=== PATIENT | female | born 1995 | race Caucasian/White ===

== ENCOUNTER 2016-03-09 21:50 | Emergency (ER) | payer OTHER ==
[2016-03-09 23:00] LABS: MEAN CORPUSCULAR HEMOGLOBIN 28.2 pg (27.0-33.0); MEAN CORPUSCULAR HGB CONC 33.2 g/dl (32.0-36.5); MEAN CORPUSCULAR VOLUME 85.2 fl (80.0-96.0); RED CELL DISTRIBUTION WIDTH 13.8 % (11.5-14.5)
--- NOTE | 2016-03-09 23:08 | EDDOCDS ---
Physician Documentation [facility] Name: Aria Diaz Age: 20 yrs Sex: Female : 1995 Arrival Date: 03/09/2016 Time: 21:50 Bed OBSERVATION Private MD: KYElmira DUKES Disposition: 03/09/16 22:58 Discharged to Home/Self Care. Impression: Acute stress reaction. - Condition is Stable. - Medication Reconciliation, Local Pharmacy Hours form. - Follow up: Referral list, As provided by PFS; When: Call to arrange an appointment; Reason: Recheck today's complaints. - Problem is new. - Symptoms have improved. Historical: - Allergies: No known drug Allergies; - Home Meds: 1. control - PMHx: Anxiety; - PSHx: wisdom teeth; - Social history: Smoking status: Patient uses tobacco products, current some day smoker. No barriers to communication noted, The patient speaks fluent Australian, Speaks appropriately for age. - Family history: Not pertinent. - : The pt / caregiver states he / she is not on anticoagulants. Home medication list is obtained from the patient. - Exposure Risk Screening:: None identified. 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 1 in. (154.94 cm) (R); 22:11 Pulse 119; slm 22:41 BP 142 / 88; Pulse 106; Resp 18; Pulse Ox 99% ; slm 21:52 Body Mass Index 33.82 (81.19 kg, 154.94 cm) dd6 MDM: 21:59 Consult PFS/PSA/Wardrobe Supervisor ordered. cs11 22:20 Consult PFS/PSA/Wardrobe Supervisor complete. ml4 22:41 Consult PFS/PSA/Wardrobe Supervisor ordered. cs11 22:41 Consult PFS/PSA/Wardrobe Supervisor: Patient's case requires discussion with on-call cs11 Psychiatrist ordered. 22:41 PSA/PFS to call Nursing Business Continuity Planning Director, to enter patient data on [place] if patient cs11 involuntarily admitted or transferred for SI or HI ordered. 22:41 Confirm accurate psychiatric medication list and times of last dosage ordered. cs11 22:41 Detain Pt Until Medically/PFS Cleared ordered. cs11 22:42 Acetaminophen Level Ordered. EDMS 22:42 Basic Metabolic Profile Ordered. EDMS 22:42 Complete Blood Count Ordered. EDMS 22:42 Drug Eval Toxicology ED Only Ordered. EDMS 22:42 Ethyl Alcohol (ethanol) Ordered. EDMS 22:42 HCG,Serum Qualitative Ordered. EDMS 22:42 Liver Profile Ordered. EDMS 22:42 Salicylate Level Ordered. EDMS 22:42 Thyroid Stimulating Hormone Ordered. EDMS 22:48 Financial registration complete. zo 22:56 [facility] [place] Agreement was scanned into [employer] and attached to record. zo 23:06 Consult PFS/PSA/Wardrobe Supervisor complete. slm Signatures: Dispatcher [employer] EDMS Bg Nance, RN RN cz Jodi York, PSA PSA ml4 [place], Zoeann zo Suman Hamlin, DO cs11 Veronica Hall,TRAINER TRAINER serafinm The chart was reviewed and I authenticate all verbal orders and agree with the evaluation and treatment provided.Attachments: 22:56 [facility] [place] Agreement zo MTDD
--- NOTE | 2016-03-09 23:09 | EDDOCDS ---
Nurse's Notes [facility] Name: Aria Diaz Age: 20 yrs Sex: Female : 1995 Arrival Date: 03/09/2016 Time: 21:50 Bed OBSERVATION Private MD: INElmira DUKES Diagnosis: Acute stress reaction Presentation: 03/09 21:58 Presenting complaint: Patient states: she was hanging out with friend and developed a cz panic attack hands were shaking and felt panicky history of anxiety pt was taking a medication for same but stopped taking because it made her tired. Mental Health Triage Level: Level 1- Pt displays no suicidal or homicidal ideations and does not appear to be a danger to self or others. Adult Sepsis Screening: The patient does not have new or worsening altered mentation. Patient's respiratory rate is less than 22. Systolic blood pressure is greater than 100. Patient has a qSOFA score of 0- Negative Sepsis Screen. Mental Health Triage Level: Level 1- Pt displays no suicidal or homicidal ideations and does not appear to be a danger to self or others. Suicide/Homicide risk assessment- the patient denies having any suicidal and/or homicidal ideations and does not present with any other emotional, behavioral or mental health complaints. 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 Transition of care: patient was not received from another setting of care. 21:58 Acuity: NIKKI Level 4 cz 21:58 Method Of Arrival: Walkin/Carried/Asstd cz Triage Assessment: 22:02 General: Appears distressed, Behavior is anxious. Pain: Denies pain. HIV screening [facility] for this visit Offered previously. 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 control - PMHx: Anxiety; - PSHx: wisdom teeth; - Social history: Smoking status: Patient uses tobacco products, current some day smoker. No barriers to communication noted, The patient speaks fluent Mongolian, Speaks appropriately for age. - Family history: Not pertinent. - : The pt / caregiver states he / she is not on anticoagulants. Home medication list is obtained from the patient. - Exposure Risk Screening:: None identified. Screenin:12 Screening information is obtained from the patient. Fall risk: No risks identified. slm Assistance ADL's: requires no assistance with activities of daily living. Nutritional screening: No deficits noted. Advance Directives: Currently, there is no health care proxy. There is no active DNR order. There is no living will. There is no Power of Entry Level Marketing Representative. Advance directive information has not previously been placed in an [facility] medical record. 23:07 Abuse/DV Screen: The patient / caregiver reports he/she is: not in a situation that slm causes fear, pain or injury. home support is adequate. Assessment: 22:11 General: Appears in no apparent distress, Behavior is anxious, cooperative. General: pt slm sitting in room [facility] talking with pt at this time . Pain: Denies pain. Neurological: Level of Consciousness is awake, alert, obeys commands. Respiratory: Airway is patent Respiratory effort is even, unlabored. :. Derm: Skin is Skin is pink, warm & dry. 23:06 Reassessment: Patient appears in no apparent distress at this time. General: Appears in slm no apparent distress, comfortable, Behavior is cooperative. Respiratory: No deficits noted. Mental Health Eval: 22:20 Mental health consult is initiated at 22:15. 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 [facility] Behavioral Health: The patient is not an established patient of [facility] Behavioral Health. Referral Information: Evaluation referral is generated by the patient himself / herself. The patient was referred for evaluation because developed a panic attack and friend's house and was unable to calm herself down, so she decided to present to [facility] as directed by [facility] on Thursday. . Subjective: The patients chief complaint is pt states, "I just had a really bad panic attack and I couldn't get myself under control." Pt initially presented to ED due to developing a panic attack while at her friends house and was unable to calm herself down. She presented to [facility] on Thursday for anxiety and was directed to present to [facility] if her symptoms became worse and request hospitalization, "to get a break from your problems." Pt adamantly denied SI and HI during interview, but then was unable to CFS when interview was almost compete. Admits suffering from vague fleeting thoughts of suicide with no plan for the past 2 days. Pt states, "Sometimes I want to fall asleep and never wake up." Last vague thought was this am, denies SI currently. Pt reports a hx of anxiety, stopped taking medication(name unknown) awhile ago due to the negative side effects. She feels the medication made her too drowsy. Pt reports feeling her panic attack was triggered by numerous stressors in her life. She and her are active duty , recently [place] to [place]. Pt reports being chaptered out of the due to not meeting their height and weight guidelines. She is suspecting discharge date is going to be within a month, however is unsure and her unit is expected to be going to [email or web address] for training. Pt states, "do I have to go to training if I'm being discharged?" Other stressors include financial difficulties and is currently staying with a friend until she can move to be with her in [place]. . Delusions are denied. Patient's mood is depressed, Hallucinations are denied. Mental Health history: anxiety, Mental Health Admissions: None. Current Outpatient Mental Health Services: [facility]. Current living environment is The patient currently lives with a roommate, . The patient is . Patient presents to Emergency Department with the following symptoms within the past 2 weeks: anxiety, decreased appetite, depressed mood, vague SI- fall asleep and not wake up. Pt denies active thoughts currently . panic attacks, poor concentration, poor impulse control, relational problem, sleep disturbance - insomnia. Substance abuse: Patient uses of wine, 2. Mental status exam: Patients appearance is appropriate, Patient's behavior is cooperative, Speech is normal. Affect is appropriate. Mood is anxious. Hallucinations are denied. Appetite is poor. Memory is good. Energy level is normal. Content of thought is normal. Thought process is intact. Cognitive level is oriented to person, place, time and situation Patient's insight is good. Judgement is good. Rapport with interviewer is good. Suicidal Ideation is denied. Homicidal ideation is denied. Disposition: Medically cleared for disposition by Suman Hamlin DO Psychiatric Consult is deferred per ED physician, Dr Hamlin . [facility] Admission Criteria: Not Applicable. [place] because the patient does not display any suicidal or homicidal ideations and does not pose a risk to self or others. DSM-V Differential Diagnosis: Acute Stress Disorder (F 43.0). Narrative: Pt continues to deny SI and HI. Voluntarily admission was discussed, pt initially was requesting hospitalization, however then decided to follow up with [facility] on Thursday. Referrals for outpt services was given at bedside and directed to return if symptoms become worse. Vital Signs: 21:52 BP 147 / 105; Pulse 135; Resp 18 S; Temp 99.0(O); Pulse Ox 99% on R/A; Weight 81.19 kg dd6 (M); Height 5 ft. 1 in. (154.94 cm) (R); 22:11 Pulse 119; slm 22:41 BP 142 / 88; Pulse 106; Resp 18; Pulse Ox 99% ; slm 21:52 Body Mass Index 33.82 (81.19 kg, 154.94 cm) dd6 Vitals: 21:52 Log In Time: March 09, 2016 at 21:50. dd6 21:53 RN notified that patient meets Red Flag criteria. dd6 ED Course: 21:51 Patient visited by John Goldberg PCA. dd6 21:51 Patient moved to Waiting dd6 21:52 [facility] Mchenry is Private Physician. dd6 21:58 Suman Hamlin DO is Attending Physician. cs11 21:58 Patient visited by Suman Hamlin DO. cs11 21:58 Patient moved to 31 cz 22:01 Triage Initiated cz 22:11 Veronica Hall LPN is Primary Nurse. slm 22:12 No IV's were initiated during this patient's visit. No procedures done that require slm assistance. 22:13 Patient visited by Veronica Hall LPN. slm 22:13 The patient / caregiver is instructed regarding the plan of care and ED course. Patient slm has correct armband on for positive identification. Call light in reach. Side rails up X 1. 22:46 Patient moved to OBSERVATION cs11 22:53 Patient name changed from Aria\\S\\\\S\\Joe\\S\\ to Aria\\S\\ \\S\\Joe. EDMS 22:56 [facility] Payment Agreement was scanned into [employer] and attached to record. zo 22:58 Referral list, As provided by PFS is Referral Physician. cs11 23:07 Patient visited by Veronica Hall LPN. slm Order Results: Lab Order: Complete Blood Count; SPEC'M 03/09/16 22:51 Test: WHITE BLOOD COUNT; Value: 14.0; Range: 4.0-10.0; Abnormal: Above high normal; Units: K/mm3; Status: F Test: RED BLOOD COUNT; Value: 4.88; Range: 4.00-5.40; Units: M/mm3; Status: F Test: HEMOGLOBIN; Value: 13.8; Range: 12.0-16.0; Units: g/dl; Status: F Test: HEMATOCRIT; Value: 41.6; Range: 36.0-47.0; Units: %; Status: F Test: MEAN CORPUSCULAR VOLUME; Value: 85.2; Range: 80.0-96.0; Units: fl; Status: F Test: MEAN CORPUSCULAR HEMOGLOBIN; Value: 28.2; Range: 27.0-33.0; Units: pg; Status: F Test: MEAN CORPUSCULAR HGB CONC; Value: 33.2; Range: 32.0-36.5; Units: g/dl; Status: F Test: RED CELL DISTRIBUTION WIDTH; Value: 13.8; Range: 11.5-14.5; Units: %; Status: F Test: PLATELET COUNT, AUTOMATED; Value: 264; Range: 150-450; Units: k/mm3; Status: F Outcome: 22:58 Discharge ordered by Provider. cs11 23:07 Discharge Assessment: Patient awake, alert and oriented x 3. No cognitive and/or slm functional deficits noted. Patient verbalized understanding of disposition instructions. patient administered narcotics - no. The following High Risk Discharge criteria are identified: None. Discharged to home ambulatory. Condition: good. Discharge instructions given to patient, Instructed on discharge instructions, follow up and referral plans. Demonstrated understanding of instructions, Pt was receptive of discharge instructions/ teaching. No special radiology studies were completed. Property :Personal belongings accompany Pt. 23:07 Patient left the ED. slm Signatures: Dispatcher [employer] EDMS Bg Nance, RN RN Jodi Alexis, PSA PSA ml4 Any Solo zo John Goldberg, AUTO MECHANIC SUPERVISOR AUTO MECHANIC SUPERVISOR dd6 Suman Hamlin DO DO cs11 Veronica Hall LPN LPN slm MTDD
[2016-03-09 23:12] LABS: AMPHETAMINES LEVEL URINE NEGATIVE (NEGATIVE); BENZODIAZEPINES URINE NEGATIVE (NEGATIVE); COCAINE METABOLITE URINE NEGATIVE (NEGATIVE); CONTROL LINE INT CTR LINE PRESENT; METHADONE URINE NEGATIVE (NEGATIVE); OPIATES URINE NEGATIVE (NEGATIVE); TRICYCLIC ANTIDEPRESS URINE NEGATIVE (NEGATIVE)
[2016-03-09 23:15] LABS: CONTROL LINE HCG INT CTR LINE PRESENT
[2016-03-09 23:29] LABS: ALBUMIN 3.8 GM/DL (3.2-5.2); ALBUMIN/GLOBULIN RATIO 0.97 (1.00-1.93); ALKALINE PHOSPHATASE 58 U/L (45-117); ALT/SGPT 17 U/L (12-78); ANION GAP 10 MEQ/L (8-16); AST/SGOT 10 U/L (15-37); BILIRUBIN,DIRECT < 0.1 MG/DL (0.0-0.2); BILIRUBIN,TOTAL 0.3 MG/DL (0.2-1.0); BLOOD UREA NITROGEN 17 MG/DL (7-18); CALCIUM LEVEL 8.7 MG/DL (8.5-10.1); CARBON DIOXIDE LEVEL 26 MEQ/L (21-32); CHLORIDE LEVEL 105 MEQ/L (98-107); GLOMERULAR FILTRATION RATE > 60.0 (>60); GLUCOSE, FASTING 100 MG/DL (70-105); POTASSIUM SERUM 3.6 MEQ/L (3.5-5.1); SODIUM LEVEL 141 MEQ/L (136-145); TOTAL PROTEIN 7.7 GM/DL (6.4-8.2)
--- NOTE | 2016-03-12 00:08 | EDDOCDS ---
Nurse's Notes [facility] Name: Aria Diaz Age: 20 yrs Sex: Female : 1995 Arrival Date: 03/09/2016 Time: 21:50 Bed OBSERVATION Private MD: NJElmira DUKES Diagnosis: Acute stress reaction Presentation: 03/09 21:58 Presenting complaint: Patient states: she was hanging out with friend and developed a cz panic attack hands were shaking and felt panicky history of anxiety pt was taking a medication for same but stopped taking because it made her tired. Mental Health Triage Level: Level 1- Pt displays no suicidal or homicidal ideations and does not appear to be a danger to self or others. Adult Sepsis Screening: The patient does not have new or worsening altered mentation. Patient's respiratory rate is less than 22. Systolic blood pressure is greater than 100. Patient has a qSOFA score of 0- Negative Sepsis Screen. Mental Health Triage Level: Level 1- Pt displays no suicidal or homicidal ideations and does not appear to be a danger to self or others. Suicide/Homicide risk assessment- the patient denies having any suicidal and/or homicidal ideations and does not present with any other emotional, behavioral or mental health complaints. 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 Transition of care: patient was not received from another setting of care. 21:58 Acuity: NIKKI Level 4 cz 21:58 Method Of Arrival: Walkin/Carried/Asstd cz Triage Assessment: 22:02 General: Appears distressed, Behavior is anxious. Pain: Denies pain. HIV screening [facility] for this visit Offered previously. 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 control - PMHx: Anxiety; - PSHx: wisdom teeth; - Social history: Smoking status: Patient uses tobacco products, current some day smoker. No barriers to communication noted, The patient speaks fluent Solomon Islander, Speaks appropriately for age. - Family history: Not pertinent. - : The pt / caregiver states he / she is not on anticoagulants. Home medication list is obtained from the patient. - Exposure Risk Screening:: None identified. Screenin:12 Screening information is obtained from the patient. Fall risk: No risks identified. slm Assistance ADL's: requires no assistance with activities of daily living. Nutritional screening: No deficits noted. Advance Directives: Currently, there is no health care proxy. There is no active DNR order. There is no living will. There is no Power of Financial Service Rep. Advance directive information has not previously been placed in an [facility] medical record. 23:07 Abuse/DV Screen: The patient / caregiver reports he/she is: not in a situation that slm causes fear, pain or injury. home support is adequate. Assessment: 22:11 General: Appears in no apparent distress, Behavior is anxious, cooperative. General: pt slm sitting in room [facility] talking with pt at this time . Pain: Denies pain. Neurological: Level of Consciousness is awake, alert, obeys commands. Respiratory: Airway is patent Respiratory effort is even, unlabored. :. Derm: Skin is Skin is pink, warm & dry. 23:06 Reassessment: Patient appears in no apparent distress at this time. General: Appears in slm no apparent distress, comfortable, Behavior is cooperative. Respiratory: No deficits noted. Mental Health Eval: 22:20 Mental health consult is initiated at 22:15. 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 [facility] Behavioral Health: The patient is not an established patient of [facility] Behavioral Health. Referral Information: Evaluation referral is generated by the patient himself / herself. The patient was referred for evaluation because developed a panic attack and friend's house and was unable to calm herself down, so she decided to present to [facility] as directed by [facility] on Thursday. . Subjective: The patients chief complaint is pt states, "I just had a really bad panic attack and I couldn't get myself under control." Pt initially presented to ED due to developing a panic attack while at her friends house and was unable to calm herself down. She presented to [facility] on Thursday for anxiety and was directed to present to [facility] if her symptoms became worse and request hospitalization, "to get a break from your problems." Pt adamantly denied SI and HI during interview, but then was unable to CFS when interview was almost compete. Admits suffering from vague fleeting thoughts of suicide with no plan for the past 2 days. Pt states, "Sometimes I want to fall asleep and never wake up." Last vague thought was this am, denies SI currently. Pt reports a hx of anxiety, stopped taking medication(name unknown) awhile ago due to the negative side effects. She feels the medication made her too drowsy. Pt reports feeling her panic attack was triggered by numerous stressors in her life. She and her are active duty , recently [place] to [place]. Pt reports being chaptered out of the due to not meeting their height and weight guidelines. She is suspecting discharge date is going to be within a month, however is unsure and her unit is expected to be going to [facility] for training. Pt states, "do I have to go to training if I'm being discharged?" Other stressors include financial difficulties and is currently staying with a friend until she can move to be with her in [place]. . Delusions are denied. Patient's mood is depressed, Hallucinations are denied. Mental Health history: anxiety, Mental Health Admissions: None. Current Outpatient Mental Health Services: [facility]. Current living environment is The patient currently lives with a roommate, . The patient is . Patient presents to Emergency Department with the following symptoms within the past 2 weeks: anxiety, decreased appetite, depressed mood, vague SI- fall asleep and not wake up. Pt denies active thoughts currently . panic attacks, poor concentration, poor impulse control, relational problem, sleep disturbance - insomnia. Substance abuse: Patient uses of wine, 2. Mental status exam: Patients appearance is appropriate, Patient's behavior is cooperative, Speech is normal. Affect is appropriate. Mood is anxious. Hallucinations are denied. Appetite is poor. Memory is good. Energy level is normal. Content of thought is normal. Thought process is intact. Cognitive level is oriented to person, place, time and situation Patient's insight is good. Judgement is good. Rapport with interviewer is good. Suicidal Ideation is denied. Homicidal ideation is denied. Disposition: Medically cleared for disposition by Suman Hamlin DO Psychiatric Consult is deferred per ED physician, Dr Hamlin . [facility] Admission Criteria: Not Applicable. [place] because the patient does not display any suicidal or homicidal ideations and does not pose a risk to self or others. DSM-V Differential Diagnosis: Acute Stress Disorder (F 43.0). Narrative: Pt continues to deny SI and HI. Voluntarily admission was discussed, pt initially was requesting hospitalization, however then decided to follow up with [facility] on Thursday. Referrals for outpt services was given at bedside and directed to return if symptoms become worse. Vital Signs: 21:52 BP 147 / 105; Pulse 135; Resp 18 S; Temp 99.0(O); Pulse Ox 99% on R/A; Weight 81.19 kg dd6 (M); Height 5 ft. 1 in. (154.94 cm) (R); 22:11 Pulse 119; slm 22:41 BP 142 / 88; Pulse 106; Resp 18; Pulse Ox 99% ; slm 21:52 Body Mass Index 33.82 (81.19 kg, 154.94 cm) dd6 Vitals: 21:52 Log In Time: March 09, 2016 at 21:50. dd6 21:53 RN notified that patient meets Red Flag criteria. dd6 ED Course: 21:51 Patient visited by John Goldberg PCA. dd6 21:51 Patient moved to Waiting dd6 21:52 PSYCHIATRIC Kress is Private Physician. dd6 21:58 Suman Hamlin DO is Attending Physician. cs11 21:58 Patient visited by Suman Hamlin DO. cs11 21:58 Patient moved to 31 cz 22:01 Triage Initiated cz 22:11 Veronica Hall LPN is Primary Nurse. slm 22:12 No IV's were initiated during this patient's visit. No procedures done that require slm assistance. 22:13 Patient visited by Veronica Hall LPN. slm 22:13 The patient / caregiver is instructed regarding the plan of care and ED course. Patient slm has correct armband on for positive identification. Call light in reach. Side rails up X 1. 22:46 Patient moved to OBSERVATION cs11 22:53 Patient name changed from Aria\\S\\\\S\\Joe\\S\\ to Aria\\S\\ \\S\\Joe. EDMS 22:56 [facility] Payment Agreement was scanned into [employer] and attached to record. zo 22:58 Referral list, As provided by PFS is Referral Physician. cs11 23:07 Patient visited by Veronica Hall LPN. slm 23:08 PSA Outpatient Referrals was scanned into [employer] and attached to record. ml4 03/10 11:32 T-Sheet-- Draft Copy was scanned into [employer] and attached to record. gb Order Results: Lab Order: Acetaminophen Level; SPEC'M 03/09/16 22:51 Test: ACETAMINOPHEN LEVEL; Value: < 2.0; Range: 10.0-30.0; Abnormal: Below low normal; Units: UG/ML; Status: F Lab Order: Basic Metabolic Profile; SPEC'M 03/09/16 22:51 Test: GLUCOSE, FASTING; Value: 100; Range: 70-105; Units: MG/DL; Status: F Test: BLOOD UREA NITROGEN; Value: 17; Range: 7-18; Units: MG/DL; Status: F Test: CREATININE FOR GFR; Value: 0.90; Range: 0.55-1.02; Units: MG/DL; Status: F Test: SODIUM LEVEL; Range: 136-145; Units: MEQ/L; Status: I Test: POTASSIUM SERUM; Range: 3.5-5.1; Units: MEQ/L; Status: I Test: CHLORIDE LEVEL; Range: 98-107; Units: MEQ/L; Status: I Test: CARBON DIOXIDE LEVEL; Range: 21-32; Units: MEQ/L; Status: I Test: ANION GAP; Range: 8-16; Units: MEQ/L; Status: I Test: CALCIUM LEVEL; Range: 8.5-10.1; Units: MG/DL; Status: I Test: GLOMERULAR FILTRATION RATE; Value: > 60.0; Range: >60; Status: F Test: SODIUM LEVEL; Value: 141; Range: 136-145; Units: MEQ/L; Status: F Test: POTASSIUM SERUM; Value: 3.6; Range: 3.5-5.1; Units: MEQ/L; Status: F Test: CHLORIDE LEVEL; Value: 105; Range: 98-107; Units: MEQ/L; Status: F Test: CARBON DIOXIDE LEVEL; Value: 26; Range: 21-32; Units: MEQ/L; Status: F Test: ANION GAP; Value: 10; Range: 8-16; Units: MEQ/L; Status: F Test: CALCIUM LEVEL; Value: 8.7; Range: 8.5-10.1; Units: MG/DL; Status: F Test Note: ; Units are mL/min/1.73 m2 Chronic Kidney Disease Staging per NKF: Stage I & II GFR >=60 Normal to Mildly Decreased Stage III GFR 30-59 Moderately Decreased Stage IV GFR 15-29 Severely Decreased Stage V GFR <15 Very Little GFR Left ESRD GFR <15 on BRAKE HOLDER Lab Order: Complete Blood Count; SPEC'M 03/09/16 22:51 Test: WHITE BLOOD COUNT; Value: 14.0; Range: 4.0-10.0; Abnormal: Above high normal; Units: K/mm3; Status: F Test: RED BLOOD COUNT; Value: 4.88; Range: 4.00-5.40; Units: M/mm3; Status: F Test: HEMOGLOBIN; Value: 13.8; Range: 12.0-16.0; Units: g/dl; Status: F Test: HEMATOCRIT; Value: 41.6; Range: 36.0-47.0; Units: %; Status: F Test: MEAN CORPUSCULAR VOLUME; Value: 85.2; Range: 80.0-96.0; Units: fl; Status: F Test: MEAN CORPUSCULAR HEMOGLOBIN; Value: 28.2; Range: 27.0-33.0; Units: pg; Status: F Test: MEAN CORPUSCULAR HGB CONC; Value: 33.2; Range: 32.0-36.5; Units: g/dl; Status: F Test: RED CELL DISTRIBUTION WIDTH; Value: 13.8; Range: 11.5-14.5; Units: %; Status: F Test: PLATELET COUNT, AUTOMATED; Value: 264; Range: 150-450; Units: k/mm3; Status: F Lab Order: Drug Eval Toxicology ED Only; SPEC'M 03/09/16 22:51 Test: AMPHETAMINES LEVEL URINE; Value: NEGATIVE; Range: NEGATIVE; Status: F Test: BARBITURATES URINE; Value: NEGATIVE; Range: NEGATIVE; Status: F Test: BENZODIAZEPINES URINE; Value: NEGATIVE; Range: NEGATIVE; Status: F Test: CANNABINOIDS URINE; Value: NEGATIVE; Range: NEGATIVE; Status: F Test: COCAINE METABOLITE URINE; Value: NEGATIVE; Range: NEGATIVE; Status: F Test: METHADONE URINE; Value: NEGATIVE; Range: NEGATIVE; Status: F Test: OPIATES URINE; Value: NEGATIVE; Range: NEGATIVE; Status: F Test: TRICYCLIC ANTIDEPRESS URINE; Value: NEGATIVE; Range: NEGATIVE; Status: F Test Note: ; ALL PRESUMPTIVE POSITIVE FINDINGS ARE UNCONFIRMED NORMAL VALUES THRESHOLD IN NG/ML AMPHETAMINES 1000 METHAMPHETAMINES 1000 BARBITURATES 300 BENZODIAZEPINES 300 CANNABINOIDS (THC) 50 COCAINE METABOLITE 300 METHADONE 300 OPIATES 300 PHENCYCLIDINE 25 TRICYCLIC ANTIDEPRESSANTS 1000 RESULTS ARE FOR MEDICAL PURPOSES ONLY. ALL URINE SPECIMENS WILL BE SAVED FOR 3 DAYS. IF CONFIRMATION OF A PRESUMPTIVE POSTIVE SCREEN RESULT IS DESIRED, CALL CHEMISTRY ([phone]) AND REQUEST URINE TO BE SENT TO REFERENCE LAB. FOR A LIST OF CLOSELY RELATED COMPOUNDS PLEASE CALL THE LAB. Lab Order: Ethyl Alcohol (ethanol); SPEC' 03/09/16 22:51 Test: ETHYL ALCOHOL (ETHANOL); Value: < 0.003; Range: 0.000-0.010; Units: %; Status: F Lab Order: HCG,Serum Qualitative; SPEC'M 03/09/16 22:51 Test: HCG, SERUM QUALITATIVE; Value: NEGATIVE; Range: NEGATIVE; Status: F Lab Order: Liver Profile; SPEC' 03/09/16 22:51 Test: AST/SGOT; Value: 10; Range: 15-37; Abnormal: Below low normal; Units: U/L; Status: F Test: ALT/SGPT; Value: 17; Range: 12-78; Units: U/L; Status: F Test: ALKALINE PHOSPHATASE; Value: 58; Range: 45-117; Units: U/L; Status: F Test: BILIRUBIN,TOTAL; Value: 0.3; Range: 0.2-1.0; Units: MG/DL; Status: F Test: BILIRUBIN,DIRECT; Value: < 0.1; Range: 0.0-0.2; Units: MG/DL; Status: F Test: TOTAL PROTEIN; Value: 7.7; Range: 6.4-8.2; Units: GM/DL; Status: F Test: ALBUMIN; Value: 3.8; Range: 3.2-5.2; Units: GM/DL; Status: F Test: ALBUMIN/GLOBULIN RATIO; Value: 0.97; Range: 1.00-1.93; Abnormal: Below low normal; Status: F Lab Order: Salicylate Level; SPEC'M 03/09/16 22:51 Test: SALICYLATE LEVEL; Value: 2.0; Range: 5.0-30.0; Abnormal: Below low normal; Units: MG/DL; Status: F Lab Order: Thyroid Stimulating Hormone; SPEC'M 03/09/16 22:51 Test: THYROID STIMULATING HORMONE; Value: 3.820; Range: 0.358-3.740; Abnormal: Above high normal; Units: uIU/ML; Status: F Outcome: 03/09 22:58 Discharge ordered by Provider. cs11 23:07 Discharge Assessment: Patient awake, alert and oriented x 3. No cognitive and/or slm functional deficits noted. Patient verbalized understanding of disposition instructions. patient administered narcotics - no. The following High Risk Discharge criteria are identified: None. Discharged to home ambulatory. Condition: good. Discharge instructions given to patient, Instructed on discharge instructions, follow up and referral plans. Demonstrated understanding of instructions, Pt was receptive of discharge instructions/ teaching. No special radiology studies were completed. Property :Personal belongings accompany Pt. 23:07 Patient left the ED. slm Signatures: Dispatcher [employer] EDMS Bg Nance, CHARMAINE RN Arleen Marsh, Reg Reg gb Jodi York, PSA PSA ml4 Any Solo Daniell, HAYDER CATERING COORDINATOR dd6 Suman Hamlin, DO cs11 Veronica Hall,MASH PROCESSING OPERATOR MASH PROCESSING OPERATOR slm Chart Complete MTDD
--- NOTE | 2016-03-12 00:08 | EDDOCDS ---
Physician Documentation [facility] Name: Aria Diaz Age: 20 yrs Sex: Female : 1995 Arrival Date: 03/09/2016 Time: 21:50 Bed OBSERVATION Private MD: WVElmira DUKES Disposition: 03/09/16 22:58 Discharged to Home/Self Care. Impression: Acute stress reaction. - Condition is Stable. - Medication Reconciliation, Local Pharmacy Hours form. - Follow up: Referral list, As provided by PFS; When: Call to arrange an appointment; Reason: Recheck today's complaints. - Problem is new. - Symptoms have improved. Historical: - Allergies: No known drug Allergies; - Home Meds: 1. control - PMHx: Anxiety; - PSHx: wisdom teeth; - Social history: Smoking status: Patient uses tobacco products, current some day smoker. No barriers to communication noted, The patient speaks fluent Beninese, Speaks appropriately for age. - Family history: Not pertinent. - : The pt / caregiver states he / she is not on anticoagulants. Home medication list is obtained from the patient. - Exposure Risk Screening:: None identified. BIT TAPPER: 03/09 22:02 LMP 02/07/2016 cz Vital Signs: 21:52 BP 147 / 105; Pulse 135; Resp 18 S; Temp 99.0(O); Pulse Ox 99% on R/A; Weight 81.19 kg dd6 / 178.99 lbs (M); Height 5 ft. 1 in. (154.94 cm) (R); 22:11 Pulse 119; slm 22:41 BP 142 / 88; Pulse 106; Resp 18; Pulse Ox 99% ; slm 21:52 Body Mass Index 33.82 (81.19 kg, 154.94 cm) dd6 MDM: 21:59 Consult PFS/PSA/Photographer Aerial ordered. cs11 22:20 Consult PFS/PSA/Photographer Aerial complete. ml4 22:41 Consult PFS/PSA/Photographer Aerial ordered. cs11 22:41 Consult PFS/PSA/Photographer Aerial: Patient's case requires discussion with on-call cs11 Psychiatrist ordered. 22:41 PSA/PFS to call Nursing Coding Advisor, to enter patient data on [place] Safe [place] if patient cs11 involuntarily admitted or transferred for SI or HI ordered. 22:41 Confirm accurate psychiatric medication list and times of last dosage ordered. cs11 22:41 Detain Pt Until Medically/PFS Cleared ordered. cs11 22:42 Acetaminophen Level Ordered. EDMS 22:42 Basic Metabolic Profile Ordered. EDMS 22:42 Complete Blood Count Ordered. EDMS 22:42 Drug Eval Toxicology ED Only Ordered. EDMS 22:42 Ethyl Alcohol (ethanol) Ordered. EDMS 22:42 HCG,Serum Qualitative Ordered. EDMS 22:42 Liver Profile Ordered. EDMS 22:42 Salicylate Level Ordered. EDMS 22:42 Thyroid Stimulating Hormone Ordered. EDMS 22:48 Financial registration complete. zo 22:56 [facility] Payment Agreement was scanned into [employer] and attached to record. zo 23:06 Consult PFS/PSA/Photographer Aerial complete. slm 23:08 PSA Outpatient Referrals was scanned into [employer] and attached to record. ml4 03/10 11:32 T-Sheet-- Draft Copy was scanned into [employer] and attached to record. gb Signatures: Dispatcher [employer] EDMS Bg Nance, CHARMAINE RN cz Arleen Rivas, Reg Reg gb Jodi York, PSA PSA ml4 Any Solo Craig, DO cs11 Vreonica Hall,FLY FISHING GUIDE FLY FISHING GUIDE [facility] The chart was reviewed and I authenticate all verbal orders and agree with the evaluation and treatment provided.Attachments: 03/09 22:56 [facility] Payment Agreement zo 03/10 11:32 T-Sheet-- Draft Copy gb Chart Complete MTDD
--- NOTE | 2016-03-12 00:08 | EDDOCDS ---
Physician Documentation [facility] Name: Aria Diaz Age: 20 yrs Sex: Female : 1995 Arrival Date: 03/09/2016 Time: 21:50 Bed OBSERVATION Private MD: ALElmira DUKES Disposition: 03/09/16 22:58 Discharged to Home/Self Care. Impression: Acute stress reaction. - Condition is Stable. - Medication Reconciliation, Local Pharmacy Hours form. - Follow up: Referral list, As provided by PFS; When: Call to arrange an appointment; Reason: Recheck today's complaints. - Problem is new. - Symptoms have improved. Historical: - Allergies: No known drug Allergies; - Home Meds: 1. control - PMHx: Anxiety; - PSHx: wisdom teeth; - Social history: Smoking status: Patient uses tobacco products, current some day smoker. No barriers to communication noted, The patient speaks fluent Tristanian, Speaks appropriately for age. - Family history: Not pertinent. - : The pt / caregiver states he / she is not on anticoagulants. Home medication list is obtained from the patient. - Exposure Risk Screening:: None identified. CARBIDER: 03/09 22:02 LMP 02/07/2016 cz Vital Signs: 21:52 BP 147 / 105; Pulse 135; Resp 18 S; Temp 99.0(O); Pulse Ox 99% on R/A; Weight 81.19 kg dd6 / 178.99 lbs (M); Height 5 ft. 1 in. (154.94 cm) (R); 22:11 Pulse 119; slm 22:41 BP 142 / 88; Pulse 106; Resp 18; Pulse Ox 99% ; slm 21:52 Body Mass Index 33.82 (81.19 kg, 154.94 cm) dd6 MDM: 21:59 Consult PFS/PSA/Deburring And Tooling Machine Operator ordered. cs11 22:20 Consult PFS/PSA/Deburring And Tooling Machine Operator complete. ml4 22:41 Consult PFS/PSA/Deburring And Tooling Machine Operator ordered. cs11 22:41 Consult PFS/PSA/Deburring And Tooling Machine Operator: Patient's case requires discussion with on-call cs11 Psychiatrist ordered. 22:41 PSA/PFS to call Nursing Managed Care Liaison, to enter [place] data [place] Safe [place] if patient cs11 involuntarily admitted or transferred for SI or HI ordered. 22:41 Confirm accurate psychiatric medication list and times of last dosage ordered. cs11 22:41 Detain Pt Until Medically/PFS Cleared ordered. cs11 22:42 Acetaminophen Level Ordered. EDMS 22:42 Basic Metabolic Profile Ordered. EDMS 22:42 Complete Blood Count Ordered. EDMS 22:42 Drug Eval Toxicology ED Only Ordered. EDMS 22:42 Ethyl Alcohol (ethanol) Ordered. EDMS 22:42 HCG,Serum Qualitative Ordered. EDMS 22:42 Liver Profile Ordered. EDMS 22:42 Salicylate Level Ordered. EDMS 22:42 Thyroid Stimulating Hormone Ordered. EDMS 22:48 Financial registration complete. zo 22:56 [place] Payment Agreement was scanned into [employer] and attached to record. zo 23:06 Consult PFS/PSA/Deburring And Tooling Machine Operator complete. slm 23:08 PSA Outpatient Referrals was scanned into [employer] and attached to record. ml4 03/10 11:32 T-Sheet-- Draft Copy was scanned into [employer] and attached to record. gb Signatures: Dispatcher [employer] EDMS Bg Nance, CHARMAINE RN cz Arleen Rivas, Reg Reg gb Jodi York, PSA PSA ml4 Any Solo Craig, DO cs11 Veronica Hall,BIOMEDICAL ENGINEERING PROFESSOR BIOMEDICAL ENGINEERING PROFESSOR [facility] The chart was reviewed and I authenticate all verbal orders and agree with the evaluation and treatment provided.Attachments: 03/09 22:56 [facility] Payment Agreement zo 03/10 11:32 T-Sheet-- Draft Copy gb Chart Complete MTDD
== END 2016-03-09 23:07 | disposition home or self-care (01) ==
LOC: M ED 21:50
DX: F43.0 Acute stress reaction (principal); F41.9 Anxiety disorder, unspecified; Z79.3 Long term (current) use of hormonal contraceptives; F17.210 Nicotine dependence, cigarettes, uncomplicated
CPT/HCPCS: 36415; 80048; 80076; 80306; 84443; 84703; 85027; 99283; G0480

== ENCOUNTER 2016-03-11 22:33 | Inpatient (IN) | payer OTHER ==
[~2016-03-11] VITALS: Ht 157.5 cm; Wt 76.4 kg
[2016-03-11 23:27] LABS: MEAN CORPUSCULAR HEMOGLOBIN 28.3 pg (27.0-33.0); MEAN CORPUSCULAR HGB CONC 32.6 g/dl (32.0-36.5); RED CELL DISTRIBUTION WIDTH 13.7 % (11.5-14.5); WHITE BLOOD COUNT 13.4 K/mm3 (4.0-10.0)
[2016-03-11 23:37] LABS: AMPHETAMINES LEVEL URINE NEGATIVE (NEGATIVE); BENZODIAZEPINES URINE NEGATIVE (NEGATIVE); COCAINE METABOLITE URINE NEGATIVE (NEGATIVE); CONTROL LINE INT CTR LINE PRESENT; METHADONE URINE NEGATIVE (NEGATIVE); OPIATES URINE NEGATIVE (NEGATIVE); TRICYCLIC ANTIDEPRESS URINE NEGATIVE (NEGATIVE)
[2016-03-11 23:38] LABS: CONTROL LINE HCG INT CTR LINE PRESENT
[2016-03-11 23:54] LABS: ALBUMIN 3.8 GM/DL (3.2-5.2); ALKALINE PHOSPHATASE 61 U/L (45-117); ALT/SGPT 12 U/L (12-78); ANION GAP 11 MEQ/L (8-16); AST/SGOT 8 U/L (15-37); BILIRUBIN,DIRECT 0.1 MG/DL (0.0-0.2); BILIRUBIN,TOTAL 0.4 MG/DL (0.2-1.0); BLOOD UREA NITROGEN 17 MG/DL (7-18); CALCIUM LEVEL 8.9 MG/DL (8.5-10.1); CARBON DIOXIDE LEVEL 26 MEQ/L (21-32); CHLORIDE LEVEL 105 MEQ/L (98-107); CREATININE FOR GFR 0.92 MG/DL (0.55-1.02); GLOMERULAR FILTRATION RATE > 60.0 (>60); GLUCOSE, FASTING 114 MG/DL (70-105); POTASSIUM SERUM 3.7 MEQ/L (3.5-5.1); SODIUM LEVEL 142 MEQ/L (136-145); TOTAL PROTEIN 7.6 GM/DL (6.4-8.2)
[2016-03-12] MEDS ORDERED: traZODone 50 MG TAB PO PRN (00:45)
[2016-03-12] MEDS ORDERED: MOM 30ML SUSPENSION UDC PO PRN (00:45)
[2016-03-12] MEDS ORDERED: ACETAMINOPHEN TAB 650MG DOSE (2X325MG) PO PRN (00:45)
[2016-03-12] MEDS ORDERED: MAALOX 30 ML SUSP *UDC PO PRN (00:45)
[2016-03-12] MEDS ORDERED: YASM3TAB2 PO (01:17)
--- NOTE | 2016-03-12 03:37 | EDDOCDS ---
Physician Documentation [facility] Name: Aria Diaz Age: 20 yrs Sex: Female : 1995 Arrival Date: 03/11/2016 Time: 22:33 Bed 31 Private MD: INElmira DUKES Disposition: 03/12/16 01:45 Hospitalization ordered by Jimmie Dorsey for Inpatient Admission. Preliminary diagnosis is Generalized anxiety disorder. - Bed requested for Admit. - Status is Inpatient Admission. ka4 - Condition is Stable. - Problem is an ongoing problem. - Symptoms are unchanged. Historical: - Allergies: mushrooms; - Home Meds: 1. control - PMHx: Anxiety; Migraines; - PSHx: wisdom teeth; - Social history: Smoking status: Patient uses tobacco products, current every day smoker. No barriers to communication noted, The patient speaks fluent Mauritian, Speaks appropriately for age. - Family history: Not pertinent. - : The pt / caregiver states he / she is not on anticoagulants. Home medication list is obtained from the patient. - Exposure Risk Screening:: None identified. APPLICATIONS SUPPORT SPECIALIST: 03/11 22:48 LMP 02/12/2016 sls1 Vital Signs: 22:36 BP 134 / 79; Pulse 125; Resp 18 S; Temp 98.9(O); Pulse Ox 100% on R/A; Weight 74.84 kg gr2 / 164.99 lbs (R); Height 5 ft. 2 in. (157.48 cm) (R); Pain 3/10; 03/12 03:35 BP 111 / 64; Pulse 86; Resp 18; Temp 98.6(T); Pulse Ox 97% on R/A; mgs 03/11 22:36 Body Mass Index 30.18 (74.84 kg, 157.48 cm) gr2 MDM: 03/11 22:58 Consult PFS/PSA/Coremaker Helper ordered. mar 16:58 Consult PFS/PSA/Coremaker Helper: Patient's case requires discussion with on-call pushpa Psychiatrist ordered. 22:58 PSA/PFS to call Nursing Dumb Waiter Operator, to enter patient data on [place] Safe [place] if patient pushpa involuntarily admitted or transferred for SI or HI ordered. 22:58 Confirm accurate psychiatric medication list and times of last dosage ordered. feb 22:58 Detain Pt Until Medically/PFS Cleared ordered. pushpa 22:59 Acetaminophen Level Ordered. EDMS 22:59 Basic Metabolic Profile Ordered. EDMS 22:59 Complete Blood Count Ordered. EDMS 22:59 Drug Eval Toxicology ED Only Ordered. EDMS 22:59 Ethyl Alcohol (ethanol) Ordered. EDMS 22:59 HCG,Serum Qualitative Ordered. EDMS 22:59 Liver Profile Ordered. EDMS 22:59 Salicylate Level Ordered. EDMS 22:59 Thyroid Stimulating Hormone Ordered. EDMS 03/12 00:11 Consult PFS/PSA/Coremaker Helper complete. jfb 00:11 Consult PFS/PSA/Coremaker Helper: Patient's case requires discussion with on-call jfb Psychiatrist complete. 00:12 PSA/PFS to call Nursing Dumb Waiter Operator, to enter patient data on [place] Safe Act if patient jfb involuntarily admitted or transferred for SI or HI complete. 00:42 Admit to [facility]: ordered. EDMS 00:42 REGULAR DIET ordered. EDMS 01:08 [facility] Payment Agreement was scanned into Findline and attached to record. hs2 01:44 Acetaminophen Level Reviewed. mm11 01:44 Basic Metabolic Profile Reviewed. mm11 01:44 Complete Blood Count Reviewed. mm11 01:44 Liver Profile Reviewed. mm11 01:44 Salicylate Level Reviewed. mm11 01:44 Thyroid Stimulating Hormone Reviewed. mm11 01:44 Drug Eval Toxicology ED Only Reviewed. mm11 01:44 Ethyl Alcohol (ethanol) Reviewed. mm11 01:44 HCG,Serum Qualitative Reviewed. mm11 01:45 Financial registration complete. hs2 02:01 [facility] Legal paperwork was scanned into Findline and attached to record. jl 02:03 [facility] Legal paperwork was scanned into [employer] and attached to record. jl Signatures: Dispatcher [employer] EDMS Paulette Ernandez RN RN Milad Stephenson, PSA PSA Darian Maya, DO mm11 Wilda Cunningham, PSA PSA Maame Marie RN RN sls1 Adia Juarez LPN LPN ka4 Ana Howard, Reg Reg hs2 The chart was reviewed and I authenticate all verbal orders and agree with the evaluation and treatment provided.Attachments: 01:08 [facility] Payment Agreement hs2 MTDD
--- NOTE | 2016-03-12 03:37 | EDDOCDS ---
Nurse's Notes [facility] Name: Aria Diaz Age: 20 yrs Sex: Female : 1995 Arrival Date: 03/11/2016 Time: 22:33 Bed 31 [facility] Diagnosis: Generalized anxiety disorder Presentation: 03/11 22:46 Presenting complaint: Patient states: seen here a few days ago for a panic attack, sls1 reports has since followed up with her cook helper vegetable, but has since had " breakdowns" and having difficult time coping. Denies SI or HI. Mental Health Triage Level: Level 1- Pt displays no suicidal or homicidal ideations and does not appear to be a danger to self or others. Adult Sepsis Screening: Accepted Exclusions- The patient does not have new or worsening altered mentation. Patient's respiratory rate is less than 22. Systolic blood pressure is greater than 100. Patient has a qSOFA score of 0- Negative Sepsis Screen. Suicide/Homicide risk assessment- Patient denies SI and HI but presents with another emotional, behavioral or other mental health complaint. 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 Transition of care: patient was not received from another setting of care. Red Flag criteria, patient assessed and taken directly to a bed. 22:46 Acuity: NIKKI Level 3 [facility] 22:46 Method Of Arrival: Walkin/Carried/Asstd [facility] Triage Assessment: 22:48 General: Appears in no apparent distress, Behavior is appropriate for age, cooperative. sls1 Pain: Location: headache Pain currently is 5 out of 10 on a pain scale. Pt Declines HIV testing. The patient is triaged at the bedside. See Assessment in Nurses Notes section of ED record. Neurological: Level of Consciousness is awake, alert. Respiratory: No deficits noted. Derm: No deficits noted. FIELD SERVICES ANALYST: 22:48 LMP 02/12/2016 [facility] Historical: - Allergies: mushrooms; - Home Meds: 1. control - PMHx: Anxiety; Migraines; - PSHx: wisdom teeth; - Social history: Smoking status: Patient uses tobacco products, current every day smoker. No barriers to communication noted, The patient speaks fluent Sudanese, Speaks appropriately for age. - Family history: Not pertinent. - : The pt / caregiver states he / she is not on anticoagulants. Home medication list is obtained from the patient. - Exposure Risk Screening:: None identified. Screenin:19 Screening information is obtained from the patient. Fall risk: No risks identified. mgs Assistance ADL's: requires no assistance with activities of daily living. Abuse/DV Screen: The patient / caregiver reports he/she is: not in a situation that causes fear, pain or injury. Nutritional screening: No deficits noted. Advance Directives: Currently, there is no health care proxy. There is no active DNR order. home support is adequate. Assessment: 23:19 General: Appears in no apparent distress, Behavior is cooperative. Pain: Denies pain. mgs Neurological: Level of Consciousness is awake, alert, Oriented to person, place, time. Cardiovascular: Capillary refill < 3 seconds Heart tones S1 S2 present Pulses are 2+ in right radial artery and left radial artery. Respiratory: Airway is patent Respiratory effort is even, unlabored, Respiratory pattern is regular, symmetrical. Derm: Skin is pink, warm & dry. 03/12 02:14 General: Appears in no apparent distress, comfortable, to be sleeping. Behavior is mgs appropriate for age, cooperative, quiet. Respiratory: Airway is patent Respiratory effort is even, unlabored, Respiratory pattern is regular, symmetrical. Derm: Skin is pink, warm & dry. 02:14 General: Appears in no apparent distress, to be sleeping. Cardiovascular: Capillary mgs refill < 3 seconds. Respiratory: Airway is patent Respiratory effort is even, unlabored, Respiratory pattern is regular, symmetrical. Derm: Skin is pink, warm & dry. 03:34 General: Appears in no apparent distress, comfortable, Behavior is appropriate for age, ka4 cooperative, pleasant. Respiratory: Airway is patent Respiratory effort is even, unlabored, Respiratory pattern is regular, symmetrical. Derm: Skin is pink, warm & dry. 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 [facility] Behavioral Health: sherry The patient is not an established patient of [facility] Behavioral Health. Referral Information: Evaluation referral is generated by the patient himself / herself. The patient was referred for evaluation because PT requesting admission for significant anxiety. Subjective: The patients chief complaint is PT presented to ED 03/09 with a panic attack and was discharged. She followed up with the [facility] and left with more appointments. 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 PT had a panic attack and she sought out her [place] for counseling. The [place] advocated for her to not to go to the training feeling it would not be in her best interest. Later in the day PT states she had a breakdown crying so hard she developed a headache, SOB and tremors that lasted for about 20 minutes. As soon as she was able to brought herself to the ED. . Delusions are denied. Patient's mood is anxious, Hallucinations are denied. 00:27 Mental Health history: anxiety, Mental Health Admissions: None. Current Outpatient [facility] Mental Health Services: Psychiatrist / Agency: PT has completed an intake at [facility]. Current living environment is The patient currently lives with a roommate, . The patient is . Patient presents to Emergency Department with the following symptoms within the past 2 weeks: anxiety, decreased appetite, depressed mood, panic attacks, poor concentration, sleep disturbance - insomnia, suicidal ideation with no plan. Substance abuse: Patient uses states she with drink wine ut not for intoxication. Mental status exam: Patients appearance is appropriate, Patient's behavior is cooperative, Speech is normal. Affect is appropriate. Mood is anxious. Hallucinations are denied. Appetite is poor. Memory is good. Energy level is normal. Content of thought is normal. Thought process is intact. Cognitive level is oriented to person, place, time and situation Patient's insight is good. Judgement is good. Rapport with interviewer is good. Suicidal Ideation is denied. Homicidal ideation is denied. Disposition:. [place] because the patient does not display any suicidal or homicidal ideations and does not pose a risk to self or others. DSM-V Differential Diagnosis: Unspecified Depressive Disorder (F32.9). Insurance Pre-Certification: Not Required, Keyla. 01:39 Disposition: Medically cleared for disposition by Darian Ross DO Psychiatric jl Consult is performed by phone with Dr Jimmie Dorsey MD. [facility] Admission Criteria: The patient displays symptoms of severe psychiatric disorder resulting in disordered behavior and significant interference with his / her ability to maintain self care. Severe Anxiety. Legal Status: Patient's legal status will be Emergency admission: 39. Vital Signs: 01/17 22:36 BP 134 / 79; Pulse 125; Resp 18 S; Temp 98.9(O); Pulse Ox 100% on R/A; Weight 74.84 kg gr2 (R); Height 5 ft. 2 in. (157.48 cm) (R); Pain 3/10; 03/12 03:35 BP 111 / 64; Pulse 86; Resp 18; Temp 98.6(T); Pulse Ox 97% on R/A; mgs 03/11 22:36 Body Mass Index 30.18 (74.84 kg, 157.48 cm) gr2 Vitals: 03/11 22:36 Log In Time: March 11, 2016 at 22:36. RN notified that patient meets Red Flag gr2 criteria. ED Course: 22:35 Patient visited by Moose Neil. gr2 22:35 Patient moved to Waiting gr2 22:36 [facility], Elmira Valenzuela is Private Physician. gr2 22:38 Patient visited by Moose Neil. gr2 22:38 Patient moved to Pre RCE gr2 22:41 Patient moved to [facility] sls1 22:48 Triage Initiated sls1 23:11 Acetaminophen Level Sent. ka4 23:11 Basic Metabolic Profile Sent. ka4 23:11 Complete Blood Count Sent. ka4 23:11 Drug Eval Toxicology ED Only Sent. ka4 23:11 Ethyl Alcohol (ethanol) Sent. ka4 23:11 HCG,Serum Qualitative Sent. ka4 23:11 Liver Profile Sent. ka4 23:11 Salicylate Level Sent. ka4 23:11 Thyroid Stimulating Hormone Sent. ka4 23:18 Darian Barnard,RN is Primary Nurse. mgs 23:20 Patient visited by Darian Barnard,CHARMAINE. mgs 23:20 Patient visited by Darian Barnard,CHARMAINE. mgs 23:35 Patient visited by Getachew Lopez. tr 23:47 Patient visited by Getachew Lopez. tr 03/12 00:31 Patient visited by Getachew Lopez. tr 00:48 Patient moved to Feb 01:08 Patient name changed from Aria\\S\\L\\S\\Joe\\S\\ to Aria\\S\\Oma\\S\\Joe. EDMS 01:08 [facility] Payment Agreement was scanned into [employer] and attached to record. hs2 01:20 Darian Ross DO is Attending Physician. mm11 01:20 Patient visited by Darian Ross DO. mm11 01:44 Patient visited by Darian Ross DO. mm11 01:45 Jimmie Dorsey MD is Hospitalizing Provider. mm11 02:01 E Legal paperwork was scanned into [employer] and attached to record. jl 02:03 E Legal paperwork was scanned into [employer] and attached to record. jl 02:14 Patient visited by Darian Barnard RN. mgs 03:35 The patient / caregiver is instructed regarding the plan of care and ED course. ka4 03:35 No IV's were initiated during this patient's visit. No procedures done that require ka4 assistance. Attachments: 02:03 [facility] Legal paperwork jl Order Results: Lab Order: Acetaminophen Level; SPEC'M 03/11/16 23:10 Test: ACETAMINOPHEN LEVEL; Value: < 2.0; Range: 10.0-30.0; Abnormal: Below low normal; Units: UG/ML; Status: F Lab Order: Basic Metabolic Profile; SPEC'M 03/11/16 23:10 Test: GLUCOSE, FASTING; Value: 114; Range: 70-105; Abnormal: Above high normal; Units: MG/DL; Status: F Test: BLOOD UREA NITROGEN; Value: 17; Range: 7-18; Units: MG/DL; Status: F Test: CREATININE FOR GFR; Value: 0.92; Range: 0.55-1.02; Units: MG/DL; Status: F Test: SODIUM LEVEL; Range: 136-145; Units: MEQ/L; Status: I Test: POTASSIUM SERUM; Range: 3.5-5.1; Units: MEQ/L; Status: I Test: CHLORIDE LEVEL; Range: 98-107; Units: MEQ/L; Status: I Test: CARBON DIOXIDE LEVEL; Range: 21-32; Units: MEQ/L; Status: I Test: ANION GAP; Range: 8-16; Units: MEQ/L; Status: I Test: CALCIUM LEVEL; Range: 8.5-10.1; Units: MG/DL; Status: I Test: GLOMERULAR FILTRATION RATE; Value: > 60.0; Range: >60; Status: F Test: SODIUM LEVEL; Value: 142; Range: 136-145; Units: MEQ/L; Status: F Test: POTASSIUM SERUM; Value: 3.7; Range: 3.5-5.1; Units: MEQ/L; Status: F Test: CHLORIDE LEVEL; Value: 105; Range: 98-107; Units: MEQ/L; Status: F Test: CARBON DIOXIDE LEVEL; Value: 26; Range: 21-32; Units: MEQ/L; Status: F Test: ANION GAP; Value: 11; Range: 8-16; Units: MEQ/L; Status: F Test: CALCIUM LEVEL; Value: 8.9; Range: 8.5-10.1; Units: MG/DL; Status: F Test Note: ; Units are mL/min/1.73 m2 Chronic Kidney Disease Staging per NKF: Stage I & II GFR >=60 Normal to Mildly Decreased Stage III GFR 30-59 Moderately Decreased Stage IV GFR 15-29 Severely Decreased Stage V GFR <15 Very Little GFR Left ESRD GFR <15 on TRANSPORT RN Lab Order: Complete Blood Count; SPEC'M 03/11/16 23:10 Test: WHITE BLOOD COUNT; Value: 13.4; Range: 4.0-10.0; Abnormal: Above high normal; Units: K/mm3; Status: F Test: RED BLOOD COUNT; Value: 4.83; Range: 4.00-5.40; Units: M/mm3; Status: F Test: HEMOGLOBIN; Value: 13.7; Range: 12.0-16.0; Units: g/dl; Status: F Test: HEMATOCRIT; Value: 42.0; Range: 36.0-47.0; Units: %; Status: F Test: MEAN CORPUSCULAR VOLUME; Value: 87.0; Range: 80.0-96.0; Units: fl; Status: F Test: MEAN CORPUSCULAR HEMOGLOBIN; Value: 28.3; Range: 27.0-33.0; Units: pg; Status: F Test: MEAN CORPUSCULAR HGB CONC; Value: 32.6; Range: 32.0-36.5; Units: g/dl; Status: F Test: RED CELL DISTRIBUTION WIDTH; Value: 13.7; Range: 11.5-14.5; Units: %; Status: F Test: PLATELET COUNT, AUTOMATED; Value: 264; Range: 150-450; Units: k/mm3; Status: F Lab Order: Drug Eval Toxicology ED Only; SPEC'M 03/11/16 23:10 Test: AMPHETAMINES LEVEL URINE; Value: NEGATIVE; Range: NEGATIVE; Status: F Test: BARBITURATES URINE; Value: NEGATIVE; Range: NEGATIVE; Status: F Test: BENZODIAZEPINES URINE; Value: NEGATIVE; Range: NEGATIVE; Status: F Test: CANNABINOIDS URINE; Value: NEGATIVE; Range: NEGATIVE; Status: F Test: COCAINE METABOLITE URINE; Value: NEGATIVE; Range: NEGATIVE; Status: F Test: METHADONE URINE; Value: NEGATIVE; Range: NEGATIVE; Status: F Test: OPIATES URINE; Value: NEGATIVE; Range: NEGATIVE; Status: F Test: TRICYCLIC ANTIDEPRESS URINE; Value: NEGATIVE; Range: NEGATIVE; Status: F Test Note: ; ALL PRESUMPTIVE POSITIVE FINDINGS ARE UNCONFIRMED NORMAL VALUES THRESHOLD IN NG/ML AMPHETAMINES 1000 METHAMPHETAMINES 1000 BARBITURATES 300 BENZODIAZEPINES 300 CANNABINOIDS (THC) 50 COCAINE METABOLITE 300 METHADONE 300 OPIATES 300 PHENCYCLIDINE 25 TRICYCLIC ANTIDEPRESSANTS 1000 RESULTS ARE FOR MEDICAL PURPOSES ONLY. ALL URINE SPECIMENS WILL BE SAVED FOR 3 DAYS. IF CONFIRMATION OF A PRESUMPTIVE POSTIVE SCREEN RESULT IS DESIRED, CALL CHEMISTRY ([phone]) AND REQUEST URINE TO BE SENT TO REFERENCE LAB. FOR A LIST OF CLOSELY RELATED COMPOUNDS PLEASE CALL THE LAB. Lab Order: Ethyl Alcohol (ethanol); SPEC'M 03/11/16 23:10 Test: ETHYL ALCOHOL (ETHANOL); Value: < 0.003; Range: 0.000-0.010; Units: %; Status: F Lab Order: HCG,Serum Qualitative; SPEC'M 03/11/16 23:10 Test: HCG, SERUM QUALITATIVE; Value: NEGATIVE; Range: NEGATIVE; Status: F Lab Order: Liver Profile; SPEC'M 03/11/16 23:10 Test: AST/SGOT; Value: 8; Range: 15-37; Abnormal: Below low normal; Units: U/L; Status: F Test: ALT/SGPT; Value: 12; Range: 12-78; Units: U/L; Status: F Test: ALKALINE PHOSPHATASE; Value: 61; Range: 45-117; Units: U/L; Status: F Test: BILIRUBIN,TOTAL; Value: 0.4; Range: 0.2-1.0; Units: MG/DL; Status: F Test: BILIRUBIN,DIRECT; Value: 0.1; Range: 0.0-0.2; Units: MG/DL; Status: F Test: TOTAL PROTEIN; Value: 7.6; Range: 6.4-8.2; Units: GM/DL; Status: F Test: ALBUMIN; Value: 3.8; Range: 3.2-5.2; Units: GM/DL; Status: F Test: ALBUMIN/GLOBULIN RATIO; Value: 1.00; Range: 1.00-1.93; Status: F Lab Order: Salicylate Level; SPEC'M 03/11/16 23:10 Test: SALICYLATE LEVEL; Value: 2.1; Range: 5.0-30.0; Abnormal: Below low normal; Units: MG/DL; Status: F Lab Order: Thyroid Stimulating Hormone; SPEC'M 03/11/16 23:10 Test: THYROID STIMULATING HORMONE; Value: 6.600; Range: 0.358-3.740; Abnormal: Above high normal; Units: uIU/ML; Status: F Outcome: 01:45 Decision to Hospitalize by Provider. mm11 03:35 Discharge Assessment: Patient awake, alert and oriented x 3. No cognitive and/or ka4 functional deficits noted. Patient verbalized understanding of disposition instructions. patient administered narcotics - no. The following High Risk Discharge criteria are identified: None. Admitted to Psych accompanied by tech, via wheelchair. Condition: stable. No special radiology studies were completed. Property given to [facility] staff. 03:36 Patient left the ED. ka4 Signatures: Dispatcher Med[employer] EDFL Paulette Ernandez RN RN jan LaFontaine, Jon, PSA PSA jl Rasmussen, Tim tr Maynard, Matthew, DO mm11 Wilda Cunningham, PSA PSA Maame Marie RN RN sls1 Moose Neil gr2 Adia Juarez LPN HAND BRIM IRONER ka4 Darian Barnard RN RN mgAna Grimes, Reg Reg hs2 Corrections: (The following items were deleted from the chart) 00:17 00:06 Subjective: The patients chief complaint is PT presented to ED 03/09 with a panic jfb attack and was discharged. She followed up with the [facility] and left with more appointments. 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 PT had a panic attack and she sought out her [place] for counseling. The [place] . [facility] 00:42 00:06 Subjective: The patients chief complaint is PT presented to ED 03/09 with a panic jfb attack and was discharged. She followed up with the [facility] and left with more appointments. 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 PT had a panic attack and she sought out her [place] for counseling. The [place] advocated for her to not to go to the training feeling it would not be in her best interest. Later in the day PT states she had a breakdown crying so hard she developed a headache, SOB and tremors that lasted for about 20 minutes. jfb MTDD
[2016-03-12 03:50] VITALS: BP 132/75
[2016-03-12] MEDS: DROSPIRENONE PO SCH (08:04)
[2016-03-12] MEDS: ETHINYL ESTRADIOL PO SCH (08:04)
--- NOTE | 2016-03-12 12:20 | MHHPE ---
DATE OF ADMISSION: 03/12/2016 LEGAL STATUS AT ADMISSION: 9.39 legal status. CHIEF COMPLAINT: "I was very distressed and panicky". HISTORY OF PRESENT ILLNESS: 20-year-old female with history of panic episodes and anxiety admitted to our unit on a 9.39. legal status. 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 According to the chart, the patient states that she was evaluated on 03/09/2016 with a panic attack and was discharged. She was followed up with [facility]. The patient states that she had a "very bad panic episode that day". She said that she was supposed to have some appointments at [facility], but "they changed the appointments and I was very concerned". She also stated that despite the fact that she is being chaptered from the [employer] for failing her "tape", meaning measurements for her weight, said that "I decided not to fight it anymore". The patient said that she was told that she would not have to go to training out of state; however, she said that "They changed their mind all of a sudden and I was told to go". She said that she became very anxious, panicky and distressed. She had the panic episode. She contacted the in flight refueling manager who advocated for her not to go the training, feeling it would not be to her best interest. The patient later had a breakdown crying so hard she developed a headache, shortness of breath and tremors that lasted about 20 minutes. When she was able to come to the emergency room she came for an evaluation and she was very anxious, distressed and afraid. Given this presentation, it was decided to admit the patient for observation. During the interview, there is no evidence of psychotic symptoms. No auditory or visual hallucinations or delusions. During the interview today, the patient is calmer and is able to explain the chain of events better than she did at admission. The patient is now calmer and is denying any suicidal ideation during the interview. Again, there is no evidence of psychotic symptoms, no auditory or visual hallucinations or delusions. No anand or hypomania. No obsessive compulsive symptoms. PAST PSYCHIATRIC HISTORY: As above. The patient has been diagnosed of panic episodes and anxiety. This is her first psychiatric admission. PAST MEDICAL HISTORY: Patient has no medical problems. FAMILY HISTORY: Patient reports that there are no relatives that have any psychiatric problems. SOCIAL HISTORY: The patient was raised by both parents. The patient reports a good normal childhood. No problems at school. She graduated high school. When she was 17 she joined the [employer] and has been in the [employer] over 3 years. [facility]. She is . Her is active duty. They have no children. As above, she is in the process of getting chaptered from the . SUBSTANCE ABUSE HISTORY: Patient denies any problems with drugs or alcohol. REVIEW OF SYSTEMS: CONSTITUTIONAL: No weight loss, fever, chills, weakness or fatigue. HEENT: No visual loss, blurry vision, double vision or yellow sclerae. No hearing loss, nasal congestion, runny nose or sore throat. SKIN: No rash or itching. CARDIOVASCULAR: No chest pain, chest pressure, chest discomfort, palpitations or edema. RESPIRATORY: No shortness of breath, cough or sputum. GI: No anorexia, nausea, vomiting or diarrhea. No abdominal pain or blood. : No burning or pain on urination. NEUROLOGIC: No headache, dizziness, syncope, paralysis, ataxia, numbness, or tingling. MUSCULOSKELETAL: No muscle, back pain, joint pain or stiffness. HEMATOLOGIC: No anemia, bleeding or bruising. LYMPHATICS: No history of a splenectomy. ENDOCRINOLOGIC: No reports of sweating, cold or heat intolerance. No polyuria or polydipsia. ALLERGIES: No history of asthma, hives, eczema or rhinitis. PHYSICAL EXAMINATION: Patient is a well developed, well nourished female in no acute distress. HEENT: Normocephalic, atraumatic. Extraocular muscles are intact. Pupils are equal, round and reactive to light and accommodation. NECK: Supple with no jugular venous distention (JVD). LUNGS: Clear to auscultation. HEART: Regular rate and rhythm with no murmur. ABDOMEN: Soft. Nontender. Nondistended. Positive bowel sounds. EXTREMITIES: No cyanosis, clubbing or edema. MENTAL STATUS EXAMINATION: Patient is dressed in [facility]. Patient is cooperative. Speech is soft and monotone. Has fair eye contact. Mood is anxious and somewhat depressed. Affect is appropriate and congruent with mood. Patient is oriented to time, place, person and situation. Maintains attention and concentration fairly. Instant call, recent and remote memory are intact. Thought processes are coherent, logical and goal directed. Patient does not have auditory or visual hallucinations. Patient does not have paranoid, persecutory, somatic, grandiose, or taoism delusions. Patient denies suicidal or homicidal ideation. Judgment and insight are fair. DIAGNOSES: [place] I: Unspecified depressive disorder. Panic disorder by history. [place] II: Deferred. [place] III: None acute. INITIAL TREATMENT PLAN: Patient was admitted on a 9.39 legal status. Complete history was obtained. With her permission, family will be contacted and database will be expanded. Her medication regime will be reviewed and changed accordingly. She will be provided with protected environment. She will be treated with individual, group and milieu therapies. She will also receive supportive psychoeducation. Discharge planning will commence immediately. Length of stay will be between 5 and 7 days. Outpatient followup will be strongly recommended. The treatment plan will focus initially on depression, risk for suicide and panic episodes.
[2016-03-12 18:00] VITALS: BP 111/66
[2016-03-13 06:37] VITALS: BP 95/55
[2016-03-13] MEDS: DROSPIRENONE PO SCH (08:32)
[2016-03-13] MEDS: ETHINYL ESTRADIOL PO SCH (08:32)
--- NOTE | 2016-03-13 10:37 | HPEPDOC ---
Medical History and Physical Date of Admission Mar 12, 2016 at 03:44 History and Physical PCP: [facility]. ATTENDING: Dr. North Dahl HPI: 20yoF admitted to [facility] for Unspecified depressive disorder, being medically examined today. No acute medical complaints today. Denies any fevers, chills, weakness, fatigue, MOE, CP, SOB, cough, palpitations, abdominal pain, N/V /D or changes in bowel or bladder habits. 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 ROS: As noted in HPI, otherwise 11pt ROS of systems reviewed and remarkable only for LMP 02/12/16 PE: GEN: 20 yo F, appears stated age. Well-nourished, well developed. No acute distress. Alert and oriented x 3. Pleasant, interactive. HEENT: Normocephalic, atraumatic. Pupils are equal, round, and reactive to light. Extraocular movements are intact. No nystagmus appreciated. Sclera are nonicteric. Conjunctiva without injection. Nose midline. Nasal turbinates without bogginess. EACs both patent BL. TMs both visualized and singh with good cone of light, no bulging or erythema. No facial asymmetry. Moist mucous membranes. Dentition fair. Pharynx pink and moist, no cobblestoning. Neck supple , trachea midline. No lymphadenopathy or thyromegaly appreciated. CHEST: Regular rate and rhythm, +S1, +S2 LUNGS: Clear to auscultation bilaterally. No wheezes, rales, or rhonchi. Breathing appears symmetric and easy. Patient is speaking in full sentences. No accessory muscle use. ABD: Round, soft, non-tender, non-distended. +Bowel sounds throughout. No rebound or guarding. No costovertebral angle tenderness. EXT: Pulses 2+ bilaterally dorsalis pedis and radial. No lower extremity edema appreciated. SKIN: [place], dry, warm. Capillary refill <2sec. No rashes. NEURO: Alert and oriented x 3. Cranial nerves III-XII are intact. No focal deficits appreciated. EKG: pending. A&P: 20yoF admitted to [facility] for Unspecified depressive disorder 1. Psych. Plan per Psychiatry. Obtain baseline EKG to assure the safety of psychiatric medications as they can prolong the QT interval. 2. Nicotine dependence. Patch available. 3. History of migraine headache. Tylenol as needed. 4. Patient remains on OCP- Iris. 5. Follow up with PCP on discharge. [facility]. 6. Leukocytosis. Patient is asymptomatic. Afebrile. Recheck CBC 7. Elevated TSH. Recheck thyroid profile. 8. Accompanied by staff member, CHARMAINE Aramblua. Vital Signs Vital Signs Label Value Date Time Patient Temperature 98.1 degrees F 03/13/16 0637 Temperature Source Tympanic 03/13/16 0637 Pulse 70 03/13/16 0637 Respiratory Rate 16 bpm 03/13/16 0637 Blood Pressure Assessment 95/55 (68) 03/13/16 0637 Blood Pressure Assessment 111/66 (81) 03/12/16 1800 Laboratory Data Labs 24H Item Value Date Time White Blood Count 13.4 K/mm3 H 03/11/160 Red Blood Count 4.83 M/mm3 03/11/160 Hemoglobin 13.7 g/dl 03/11/160 Hematocrit 42.0 % 03/11/160 Mean Corpuscular Volume 87.0 fl 03/11/160 Mean Corpuscular Hemoglobin 28.3 pg 03/11/162309 Mean Corpuscular Hemoglobin Concent 32.6 g/dl 03/11/160 Red Cell Distribution Width 13.7 % 03/11/162309 Platelet Count 264 k/mm3 03/11/160 Sodium Level 142 MEQ/L 03/11/160 Potassium Level 3.7 MEQ/L 03/11/160 Chloride Level 105 MEQ/L 03/11/160 Carbon Dioxide Level 26 MEQ/L 03/11/160 Anion Gap 11 MEQ/L 03/11/160 Blood Urea Nitrogen 17 MG/DL 03/11/160 Creatinine 0.92 MG/DL 03/11/160 Glomerular Filtration Rate > 60.0 03/11/162309 Fasting Glucose 114 MG/DL H 03/11/162309 Calcium Level 8.9 MG/DL 03/11/162309 Total Bilirubin 0.4 MG/DL 03/11/162309 Direct Bilirubin 0.1 MG/DL 03/11/162309 Aspartate Amino Transf (AST/SGOT) 8 U/L L 03/11/162309 Alanine Aminotransferase (ALT/SGPT) 12 U/L 03/11/162309 Alkaline Phosphatase 61 U/L 03/11/162309 Total Protein 7.6 GM/DL 03/11/162309 Albumin 3.8 GM/DL 03/11/162309 Albumin/Globulin Ratio 1.00 03/11/162309 Thyroid Stimulating Hormone (TSH) 6.600 uIU/ML H 03/11/162309 Human Chorionic Gonadotropin, Qual NEGATIVE 03/11/162309 Salicylates Level 2.1 MG/DL L 03/11/162309 Urine Opiates Screen NEGATIVE 03/11/162309 Urine Methadone Screen NEGATIVE 03/11/162309 Acetaminophen Level < 2.0 UG/ML L 03/11/162309 Urine Barbiturates, Qualitative NEGATIVE 03/11/162309 Urine Tricyclic Antidepressants NEGATIVE 03/11/162309 Urine Amphetamine Level NEGATIVE 03/11/162309 Urine Benzodiazepines Screen NEGATIVE 03/11/162309 Urine Cocaine Metabolite NEGATIVE 03/11/162309 Urine Cannabinoids NEGATIVE 03/11/162309 Ethyl Alcohol Level < 0.003 % 03/11/162309 Home Medications Scheduled (Iris 28 3-0.03 mg) 1 Tab Tab 1 TAB PO DAILY Allergies Coded Allergies: Mushroom (Unverified Allergy, Intermediate, HIVES, 03/12/16) Adrienne Bobby Mar 13, 2016 10:36
--- NOTE | 2016-03-13 16:48 | ECGEPIP ---
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
--- NOTE | 2016-03-13 17:14 | IPN ---
DATE: 03/13/2016 SUBJECTIVE: "I feel significantly better." OBJECTIVE: The patient is improving. No episodes of panic ... significantly less anxious, is able to contract for safety. We discussed her treatment plan. MENTAL STATUS EXAMINATION: The patient is dressed in [facility]. The patient is calm and cooperative. She has fair eye contact. Speech is normal in rate, volume and articulation, is coherent and spontaneous. Mood is slightly depressed and anxious but improved from admission. Affect is congruent with mood. No delusions or hallucinations. Memory is intact. The patient is fully oriented. Associations are intact. Thinking is logical. Thought content is appropriate. The patient is denying suicidal or homicidal ideation during the interview. Insight and judgment is fair. ASSESSMENT: 1. Adjustment disorder with depressed and anxious mood. 2. Panic disorder. PLAN: We will schedule a chain of command meeting, and if everything is okay and the patient continues to improve, we will discharge tomorrow morning. DAISY
[2016-03-13 18:00] VITALS: BP 127/72
--- NOTE | 2016-03-14 04:37 | EDDOCDS ---
Nurse's Notes [facility] Name: Aria Diaz Age: 20 yrs Sex: Female : 1995 Arrival Date: 03/11/2016 Time: 22:33 Bed 31 [facility] Diagnosis: Generalized anxiety disorder Presentation: 03/11 22:46 Presenting complaint: Patient states: seen here a few days ago for a panic attack, sls1 reports has since followed up with her internal corrosion specialist, but has since had " breakdowns" and having difficult time coping. Denies SI or HI. Mental Health Triage Level: Level 1- Pt displays no suicidal or homicidal ideations and does not appear to be a danger to self or others. Adult Sepsis Screening: Accepted Exclusions- The patient does not have new or worsening altered mentation. Patient's respiratory rate is less than 22. Systolic blood pressure is greater than 100. Patient has a qSOFA score of 0- Negative Sepsis Screen. Suicide/Homicide risk assessment- Patient denies SI and HI but presents with another emotional, behavioral or other mental health complaint. 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 Transition of care: patient was not received from another setting of care. Red Flag criteria, patient assessed and taken directly to a bed. 22:46 Acuity: NIKKI Level 3 [facility] 22:46 Method Of Arrival: Walkin/Carried/Asstd [facility] Triage Assessment: 22:48 General: Appears in no apparent distress, Behavior is appropriate for age, cooperative. sls1 Pain: Location: headache Pain currently is 5 out of 10 on a pain scale. Pt Declines HIV testing. The patient is triaged at the bedside. See Assessment in Nurses Notes section of ED record. Neurological: Level of Consciousness is awake, alert. Respiratory: No deficits noted. Derm: No deficits noted. SUPERVISING BROKER: 22:48 LMP 02/12/2016 [facility] Historical: - Allergies: mushrooms; - Home Meds: 1. control - PMHx: Anxiety; Migraines; - PSHx: wisdom teeth; - Social history: Smoking status: Patient uses tobacco products, current every day smoker. No barriers to communication noted, The patient speaks fluent Citizen Of [place], Speaks appropriately for age. - Family history: Not pertinent. - : The pt / caregiver states he / she is not on anticoagulants. Home medication list is obtained from the patient. - Exposure Risk Screening:: None identified. Screenin:19 Screening information is obtained from the patient. Fall risk: No risks identified. mgs Assistance ADL's: requires no assistance with activities of daily living. Abuse/DV Screen: The patient / caregiver reports he/she is: not in a situation that causes fear, pain or injury. Nutritional screening: No deficits noted. Advance Directives: Currently, there is no health care proxy. There is no active DNR order. home support is adequate. Assessment: 23:19 General: Appears in no apparent distress, Behavior is cooperative. Pain: Denies pain. mgs Neurological: Level of Consciousness is awake, alert, Oriented to person, place, time. Cardiovascular: Capillary refill < 3 seconds Heart tones S1 S2 present Pulses are 2+ in right radial artery and left radial artery. Respiratory: Airway is patent Respiratory effort is even, unlabored, Respiratory pattern is regular, symmetrical. Derm: Skin is pink, warm & dry. 03/12 02:14 General: Appears in no apparent distress, comfortable, to be sleeping. Behavior is mgs appropriate for age, cooperative, quiet. Respiratory: Airway is patent Respiratory effort is even, unlabored, Respiratory pattern is regular, symmetrical. Derm: Skin is pink, warm & dry. 02:14 General: Appears in no apparent distress, to be sleeping. Cardiovascular: Capillary mgs refill < 3 seconds. Respiratory: Airway is patent Respiratory effort is even, unlabored, Respiratory pattern is regular, symmetrical. Derm: Skin is pink, warm & dry. 03:34 General: Appears in no apparent distress, comfortable, Behavior is appropriate for age, ka4 cooperative, pleasant. Respiratory: Airway is patent Respiratory effort is even, unlabored, Respiratory pattern is regular, symmetrical. Derm: Skin is pink, warm & dry. 03:36 Adult Sepsis Screening: The patient does not have new or worsening altered mentation. mgs Patient's respiratory rate is less than 22. Systolic blood pressure is greater than 100. Patient has a qSOFA score of 0- Negative Sepsis Screen. General: Appears in no apparent distress, Behavior is appropriate for age, cooperative. Neurological: Level of Consciousness is awake, alert, Oriented to person, place, time. Cardiovascular: Capillary refill < 3 seconds Heart tones S1 S2 present. Respiratory: Airway is patent Respiratory effort is even, unlabored, Respiratory pattern is regular, symmetrical. Derm: Skin is pink, warm & dry. 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 [facility] Behavioral Health: [facility] The patient is not an established patient of [facility] Behavioral Health. Referral Information: Evaluation referral is generated by the patient himself / herself. The patient was referred for evaluation because PT requesting admission for significant anxiety. Subjective: The patients chief complaint is PT presented to ED 03/09 with a panic attack and was discharged. She followed up with the [facility] and left with more appointments. Today she was told that she would have to go out of state tomorrow for a training despite the fact that she is being Chaptered from the [employer] for failing her "tape" meaning measurements for her weight and "I decided not to fight it anymore". PT had a panic attack and she sought out her Monona for counseling. The Evelyn advocated for her to not to go to the training feeling it would not be in her best interest. Later in the day PT states she had a breakdown crying so hard she developed a headache, SOB and tremors that lasted for about 20 minutes. As soon as she was able to brought herself to the ED. . Delusions are denied. Patient's mood is anxious, Hallucinations are denied. 00:27 Mental Health history: anxiety, Mental Health Admissions: None. Current Outpatient [facility] Mental Health Services: Psychiatrist / Agency: PT has completed an intake at [facility]. Current living environment is The patient currently lives with a roommate, . The patient is . Patient presents to Emergency Department with the following symptoms within the past 2 weeks: anxiety, decreased appetite, depressed mood, panic attacks, poor concentration, sleep disturbance - insomnia, suicidal ideation with no plan. Substance abuse: Patient uses states she with drink wine ut not for intoxication. Mental status exam: Patients appearance is appropriate, Patient's behavior is cooperative, Speech is normal. Affect is appropriate. Mood is anxious. Hallucinations are denied. Appetite is poor. Memory is good. Energy level is normal. Content of thought is normal. Thought process is intact. Cognitive level is oriented to person, place, time and situation Patient's insight is good. Judgement is good. Rapport with interviewer is good. Suicidal Ideation is denied. Homicidal ideation is denied. Disposition:. [place] because the patient does not display any suicidal or homicidal ideations and does not pose a risk to self or others. DSM-V Differential Diagnosis: Unspecified Depressive Disorder (F32.9). Insurance Pre-Certification: Not Required, . 01:39 Disposition: Medically cleared for disposition by Darian Ross DO Psychiatric jl Consult is performed by phone with Dr Jimmie Dorsey MD. [facility] Admission Criteria: The patient displays symptoms of severe psychiatric disorder resulting in disordered behavior and significant interference with his / her ability to maintain self care. Severe Anxiety. Legal Status: Patient's legal status will be Emergency admission: . Vital Signs: 03/11 22:36 BP 134 / 79; Pulse 125; Resp 18 S; Temp 98.9(O); Pulse Ox 100% on R/A; Weight 74.84 kg gr2 (R); Height 5 ft. 2 in. (157.48 cm) (R); Pain 3/10; 03/12 03:35 BP 111 / 64; Pulse 86; Resp 18; Temp 98.6(T); Pulse Ox 97% on R/A; mgs 03/11 22:36 Body Mass Index 30.18 (74.84 kg, 157.48 cm) gr2 Vitals: 03/11 22:36 Log In Time: March 11, 2016 at 22:36. RN notified that patient meets Red Flag gr2 criteria. ED Course: 22:35 Patient visited by Moose Neil. gr2 22:35 Patient moved to Waiting gr2 22:36 [facility], Elmira Valenzuela is Private Physician. gr2 22:38 Patient visited by Moose Neil. gr2 22:38 Patient moved to Pre E gr2 22:41 Patient moved to [facility] sls1 22:48 Triage Initiated sls1 23:11 Acetaminophen Level Sent. ka4 23:11 Basic Metabolic Profile Sent. ka4 23:11 Complete Blood Count Sent. ka4 23:11 Drug Eval Toxicology ED Only Sent. ka4 23:11 Ethyl Alcohol (ethanol) Sent. ka4 23:11 HCG,Serum Qualitative Sent. ka4 23:11 Liver Profile Sent. ka4 23:11 Salicylate Level Sent. ka4 23:11 Thyroid Stimulating Hormone Sent. ka4 23:18 Darian Barnard,RN is Primary Nurse. mgs 23:20 Patient visited by Darian Barnard RN. mgs 23:20 Patient visited by Darian Barnard RN. mgs 23:35 Patient visited by Getachew Lopez. tr 23:47 Patient visited by Getachew Lopez. tr 03/12 00:31 Patient visited by Getachew Lopez. tr 00:48 Patient moved to Feb 01:08 Patient name changed from Aria\\S\\L\\S\\Joe\\S\\ to Aria\\S\\Oma\\S\\Joe. EDMS 01:08 [facility] Payment Agreement was scanned into [employer] and attached to record. hs2 01:20 Darian Ross DO is Attending Physician. mm11 01:20 Patient visited by Darian Ross DO. mm11 01:44 Patient visited by Darian Ross DO. mm11 01:45 Jimmie Dorsey MD is Hospitalizing Provider. mm11 02:01 E Legal paperwork was scanned into [employer] and attached to record. jl 02:03 E Legal paperwork was scanned into [employer] and attached to record. jl 02:14 Patient visited by Darian Barnard RN. mgs 03:35 The patient / caregiver is instructed regarding the plan of care and ED course. ka4 03:35 No IV's were initiated during this patient's visit. No procedures done that require ka4 assistance. 10:20 T-Sheet-- Draft Copy was scanned into [employer] and attached to record. gb Attachments: 02:03 E Legal paperwork jl Order Results: Lab Order: Acetaminophen Level; SPEC'M 03/11/16 23:10 Test: ACETAMINOPHEN LEVEL; Value: < 2.0; Range: 10.0-30.0; Abnormal: Below low normal; Units: UG/ML; Status: F Lab Order: Basic Metabolic Profile; SPEC'M 03/11/16 23:10 Test: GLUCOSE, FASTING; Value: 114; Range: 70-105; Abnormal: Above high normal; Units: MG/DL; Status: F Test: BLOOD UREA NITROGEN; Value: 17; Range: 7-18; Units: MG/DL; Status: F Test: CREATININE FOR GFR; Value: 0.92; Range: 0.55-1.02; Units: MG/DL; Status: F Test: SODIUM LEVEL; Range: 136-145; Units: MEQ/L; Status: I Test: POTASSIUM SERUM; Range: 3.5-5.1; Units: MEQ/L; Status: I Test: CHLORIDE LEVEL; Range: 98-107; Units: MEQ/L; Status: I Test: CARBON DIOXIDE LEVEL; Range: 21-32; Units: MEQ/L; Status: I Test: ANION GAP; Range: 8-16; Units: MEQ/L; Status: I Test: CALCIUM LEVEL; Range: 8.5-10.1; Units: MG/DL; Status: I Test: GLOMERULAR FILTRATION RATE; Value: > 60.0; Range: >60; Status: F Test: SODIUM LEVEL; Value: 142; Range: 136-145; Units: MEQ/L; Status: F Test: POTASSIUM SERUM; Value: 3.7; Range: 3.5-5.1; Units: MEQ/L; Status: F Test: CHLORIDE LEVEL; Value: 105; Range: 98-107; Units: MEQ/L; Status: F Test: CARBON DIOXIDE LEVEL; Value: 26; Range: 21-32; Units: MEQ/L; Status: F Test: ANION GAP; Value: 11; Range: 8-16; Units: MEQ/L; Status: F Test: CALCIUM LEVEL; Value: 8.9; Range: 8.5-10.1; Units: MG/DL; Status: F Test Note: ; Units are mL/min/1.73 m2 Chronic Kidney Disease Staging per NKF: Stage I & II GFR >=60 Normal to Mildly Decreased Stage III GFR 30-59 Moderately Decreased Stage IV GFR 15-29 Severely Decreased Stage V GFR <15 Very Little GFR Left ESRD GFR <15 on CHECK EMBOSSER Lab Order: Complete Blood Count; SPEC'M 03/11/16 23:10 Test: WHITE BLOOD COUNT; Value: 13.4; Range: 4.0-10.0; Abnormal: Above high normal; Units: K/mm3; Status: F Test: RED BLOOD COUNT; Value: 4.83; Range: 4.00-5.40; Units: M/mm3; Status: F Test: HEMOGLOBIN; Value: 13.7; Range: 12.0-16.0; Units: g/dl; Status: F Test: HEMATOCRIT; Value: 42.0; Range: 36.0-47.0; Units: %; Status: F Test: MEAN CORPUSCULAR VOLUME; Value: 87.0; Range: 80.0-96.0; Units: fl; Status: F Test: MEAN CORPUSCULAR HEMOGLOBIN; Value: 28.3; Range: 27.0-33.0; Units: pg; Status: F Test: MEAN CORPUSCULAR HGB CONC; Value: 32.6; Range: 32.0-36.5; Units: g/dl; Status: F Test: RED CELL DISTRIBUTION WIDTH; Value: 13.7; Range: 11.5-14.5; Units: %; Status: F Test: PLATELET COUNT, AUTOMATED; Value: 264; Range: 150-450; Units: k/mm3; Status: F Lab Order: Drug Eval Toxicology ED Only; SPEC'M 03/11/16 23:10 Test: AMPHETAMINES LEVEL URINE; Value: NEGATIVE; Range: NEGATIVE; Status: F Test: BARBITURATES URINE; Value: NEGATIVE; Range: NEGATIVE; Status: F Test: BENZODIAZEPINES URINE; Value: NEGATIVE; Range: NEGATIVE; Status: F Test: CANNABINOIDS URINE; Value: NEGATIVE; Range: NEGATIVE; Status: F Test: COCAINE METABOLITE URINE; Value: NEGATIVE; Range: NEGATIVE; Status: F Test: METHADONE URINE; Value: NEGATIVE; Range: NEGATIVE; Status: F Test: OPIATES URINE; Value: NEGATIVE; Range: NEGATIVE; Status: F Test: TRICYCLIC ANTIDEPRESS URINE; Value: NEGATIVE; Range: NEGATIVE; Status: F Test Note: ; ALL PRESUMPTIVE POSITIVE FINDINGS ARE UNCONFIRMED NORMAL VALUES THRESHOLD IN NG/ML AMPHETAMINES 1000 METHAMPHETAMINES 1000 BARBITURATES 300 BENZODIAZEPINES 300 CANNABINOIDS (THC) 50 COCAINE METABOLITE 300 METHADONE 300 OPIATES 300 PHENCYCLIDINE 25 TRICYCLIC ANTIDEPRESSANTS 1000 RESULTS ARE FOR MEDICAL PURPOSES ONLY. ALL URINE SPECIMENS WILL BE SAVED FOR 3 DAYS. IF CONFIRMATION OF A PRESUMPTIVE POSTIVE SCREEN RESULT IS DESIRED, CALL CHEMISTRY ([phone]) AND REQUEST URINE TO BE SENT TO REFERENCE LAB. FOR A LIST OF CLOSELY RELATED COMPOUNDS PLEASE CALL THE LAB. Lab Order: Ethyl Alcohol (ethanol); SPEC'M 03/11/16 23:10 Test: ETHYL ALCOHOL (ETHANOL); Value: < 0.003; Range: 0.000-0.010; Units: %; Status: F Lab Order: HCG,Serum Qualitative; SPEC'M 03/11/16 23:10 Test: HCG, SERUM QUALITATIVE; Value: NEGATIVE; Range: NEGATIVE; Status: F Lab Order: Liver Profile; SPEC'M 03/11/16 23:10 Test: AST/SGOT; Value: 8; Range: 15-37; Abnormal: Below low normal; Units: U/L; Status: F Test: ALT/SGPT; Value: 12; Range: 12-78; Units: U/L; Status: F Test: ALKALINE PHOSPHATASE; Value: 61; Range: 45-117; Units: U/L; Status: F Test: BILIRUBIN,TOTAL; Value: 0.4; Range: 0.2-1.0; Units: MG/DL; Status: F Test: BILIRUBIN,DIRECT; Value: 0.1; Range: 0.0-0.2; Units: MG/DL; Status: F Test: TOTAL PROTEIN; Value: 7.6; Range: 6.4-8.2; Units: GM/DL; Status: F Test: ALBUMIN; Value: 3.8; Range: 3.2-5.2; Units: GM/DL; Status: F Test: ALBUMIN/GLOBULIN RATIO; Value: 1.00; Range: 1.00-1.93; Status: F Lab Order: Salicylate Level; SPEC'M 03/11/16 23:10 Test: SALICYLATE LEVEL; Value: 2.1; Range: 5.0-30.0; Abnormal: Below low normal; Units: MG/DL; Status: F Lab Order: Thyroid Stimulating Hormone; SPEC'M 03/11/16 23:10 Test: THYROID STIMULATING HORMONE; Value: 6.600; Range: 0.358-3.740; Abnormal: Above high normal; Units: uIU/ML; Status: F Outcome: 01:45 Decision to Hospitalize by Provider. mm11 03:35 Discharge Assessment: Patient awake, alert and oriented x 3. No cognitive and/or ka4 functional deficits noted. Patient verbalized understanding of disposition instructions. patient administered narcotics - no. The following High Risk Discharge criteria are identified: None. Admitted to Psych accompanied by tech, via wheelchair. Condition: stable. No special radiology studies were completed. Property given to [facility] staff. 03:36 Patient left the ED. ka4 Signatures: Dispatcher [employer] EDMS Paulette Ernandez RN Milad Monte, PSA PSA jl Arleen Rivas, Reg Reg gb Getachew Lopez Matthew, DO DO mm11 Wilda Cunningham, PSA PSA jfb Maame Valerio RN RN sls1 Moose Neil gr2 Adia Juarez,RETORT FIREMAN RETORT FIREMAN ka4 Darian Barnard RN RN mgs Stanton, Hillary, Reg Reg hs2 Corrections: (The following items were deleted from the chart) 00:17 00:06 Subjective: The patients chief complaint is PT presented to ED 03/09 with a panic jfb attack and was discharged. She followed up with the [facility] and left with more appointments. 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 PT had a panic attack and she sought out her Evelyn for counseling. The Evelyn . jfb 00:42 00:06 Subjective: The patients chief complaint is PT presented to ED 03/09 with a panic jfb attack and was discharged. She followed up with the [facility] and left with more appointments. 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 PT had a panic attack and she sought out her Monona for counseling. The Monona advocated for her to not to go to the training feeling it would not be in her best interest. Later in the day PT states she had a breakdown crying so hard she developed a headache, SOB and tremors that lasted for about 20 minutes. jfb Chart Complete MTDD
--- NOTE | 2016-03-14 04:37 | EDDOCDS ---
Physician Documentation [facility] Name: Aria Diaz Age: 20 yrs Sex: Female : 1995 Arrival Date: 03/11/2016 Time: 22:33 Bed 31 Private MD: [facility] DUKES Disposition: 03/12/16 01:45 Hospitalization ordered by Jimmie Dorsey for Inpatient Admission. Preliminary diagnosis is Generalized anxiety disorder. - Bed requested for Admit. - Status is Inpatient Admission. ka4 - Condition is Stable. - Problem is an ongoing problem. - Symptoms are unchanged. Historical: - Allergies: mushrooms; - Home Meds: 1. control - PMHx: Anxiety; Migraines; - PSHx: wisdom teeth; - Social history: Smoking status: Patient uses tobacco products, current every day smoker. No barriers to communication noted, The patient speaks fluent Kyrgyz, Speaks appropriately for age. - Family history: Not pertinent. - : The pt / caregiver states he / she is not on anticoagulants. Home medication list is obtained from the patient. - Exposure Risk Screening:: None identified. 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 2 in. (157.48 cm) (R); Pain 3/10; 03/12 03:35 BP 111 / 64; Pulse 86; Resp 18; Temp 98.6(T); Pulse Ox 97% on R/A; mgs 03/11 22:36 Body Mass Index 30.18 (74.84 kg, 157.48 cm) gr2 MDM: 03/11 22:58 Consult PFS/PSA/Investigator Fraud ordered. mar 16:58 Consult PFS/PSA/Investigator Fraud: Patient's case requires discussion with on-call pushpa Psychiatrist ordered. 22:58 PSA/PFS to call Nursing Surface Water Manager, to enter patient data on [place] if patient pushpa involuntarily admitted or transferred for SI or HI ordered. 22:58 Confirm accurate psychiatric medication list and times of last dosage ordered. feb 22:58 Detain Pt Until Medically/PFS Cleared ordered. pushpa 22:59 Acetaminophen Level Ordered. EDMS 22:59 Basic Metabolic Profile Ordered. EDMS 22:59 Complete Blood Count Ordered. EDMS 22:59 Drug Eval Toxicology ED Only Ordered. EDMS 22:59 Ethyl Alcohol (ethanol) Ordered. EDMS 22:59 HCG,Serum Qualitative Ordered. EDMS 22:59 Liver Profile Ordered. EDMS 22:59 Salicylate Level Ordered. EDMS 22:59 Thyroid Stimulating Hormone Ordered. EDMS 03/12 00:11 Consult PFS/PSA/Investigator Fraud complete. jfb 00:11 Consult PFS/PSA/Investigator Fraud: Patient's case requires discussion with on-call jfb Psychiatrist complete. 00:12 PSA/PFS to call Nursing Surface Water Manager, to [place] patient data [place] if patient jfb involuntarily admitted or transferred for SI or HI complete. 00:42 Admit to [facility]: ordered. EDMS 00:42 REGULAR DIET ordered. EDMS 01:08 [facility] Payment Agreement was scanned into [employer] and attached to record. hs2 01:44 Acetaminophen Level Reviewed. mm11 01:44 Basic Metabolic Profile Reviewed. mm11 01:44 Complete Blood Count Reviewed. mm11 01:44 Liver Profile Reviewed. mm11 01:44 Salicylate Level Reviewed. mm11 01:44 Thyroid Stimulating Hormone Reviewed. mm11 01:44 Drug Eval Toxicology ED Only Reviewed. mm11 01:44 Ethyl Alcohol (ethanol) Reviewed. mm11 01:44 HCG,Serum Qualitative Reviewed. mm11 01:45 Financial registration complete. hs2 02:01 [facility] Legal paperwork was scanned into [employer] and attached to record. jl 02:03 [facility] Legal paperwork was scanned into [employer] and attached to record. jl 10:20 T-Sheet-- Draft Copy was scanned into [employer] and attached to record. gb Signatures: Dispatcher [employer] EDMS Paulette Ernandez RN RN jan LaFontaine, Jon, PSA PSA Arleen Florence, Reg Reg gb Darian Ross, DO mm11 Wilda Cunningham, PSA PSA Maame Marie RN RN sls1 Adia Juarez,BUSINESS COMMUNICATIONS INSTRUCTOR BUSINESS COMMUNICATIONS INSTRUCTOR ka4 Ana Howard, Reg Reg hs2 The chart was reviewed and I authenticate all verbal orders and agree with the evaluation and treatment provided.Attachments: 01:08 [facility] Payment Agreement hs2 10:20 T-Sheet-- Draft Copy gb Chart Complete MTDD
--- NOTE | 2016-03-14 04:37 | EDDOCDS ---
Physician Documentation [facility] Name: Aria Diaz Age: 20 yrs Sex: Female : 1995 Arrival Date: 03/11/2016 Time: 22:33 Bed 31 Private MD: MNElmira DUKES Disposition: 03/12/16 01:45 Hospitalization ordered by Jimmie Dorsey for Inpatient Admission. Preliminary diagnosis is Generalized anxiety disorder. - Bed requested for Admit. - Status is Inpatient Admission. ka4 - Condition is Stable. - Problem is an ongoing problem. - Symptoms are unchanged. Historical: - Allergies: mushrooms; - Home Meds: 1. control - PMHx: Anxiety; Migraines; - PSHx: wisdom teeth; - Social history: Smoking status: Patient uses tobacco products, current every day smoker. No barriers to communication noted, The patient speaks fluent Togolese, Speaks appropriately for age. - Family history: Not pertinent. - : The pt / caregiver states he / she is not on anticoagulants. Home medication list is obtained from the patient. - Exposure Risk Screening:: None identified. HYPERION DEVELOPER: 03/11 22:48 LMP 02/12/2016 sls1 Vital Signs: 22:36 BP 134 / 79; Pulse 125; Resp 18 S; Temp 98.9(O); Pulse Ox 100% on R/A; Weight 74.84 kg gr2 / 164.99 lbs (R); Height 5 ft. 2 in. (157.48 cm) (R); Pain 3/10; 03/12 03:35 BP 111 / 64; Pulse 86; Resp 18; Temp 98.6(T); Pulse Ox 97% on R/A; mgs 03/11 22:36 Body Mass Index 30.18 (74.84 kg, 157.48 cm) gr2 MDM: 03/11 22:58 Consult PFS/PSA/Transmission Repairer ordered. mar 16:58 Consult PFS/PSA/Transmission Repairer: Patient's case requires discussion with on-call pushpa Psychiatrist ordered. 22:58 PSA/PFS to call Nursing Kindergarten Teacher, to enter patient data on [place] Safe Act if patient pushpa involuntarily admitted or transferred for SI or HI ordered. 22:58 Confirm accurate psychiatric medication list and times of last dosage ordered. feb 22:58 Detain Pt Until Medically/PFS Cleared ordered. pushpa 22:59 Acetaminophen Level Ordered. EDMS 22:59 Basic Metabolic Profile Ordered. EDMS 22:59 Complete Blood Count Ordered. EDMS 22:59 Drug Eval Toxicology ED Only Ordered. EDMS 22:59 Ethyl Alcohol (ethanol) Ordered. EDMS 22:59 HCG,Serum Qualitative Ordered. EDMS 22:59 Liver Profile Ordered. EDMS 22:59 Salicylate Level Ordered. EDMS 22:59 Thyroid Stimulating Hormone Ordered. EDMS 03/12 00:11 Consult PFS/PSA/Transmission Repairer complete. jfb 00:11 Consult PFS/PSA/Transmission Repairer: Patient's case requires discussion with on-call jfb Psychiatrist complete. 00:12 PSA/PFS to call Nursing Kindergarten Teacher, to enter patient data [place] Safe [place] if patient jfb involuntarily admitted or transferred for SI or HI complete. 00:42 Admit to [facility]: ordered. EDMS 00:42 REGULAR DIET ordered. EDMS 01:08 [facility] Payment Agreement was scanned into [employer] and attached to record. hs2 01:44 Acetaminophen Level Reviewed. mm11 01:44 Basic Metabolic Profile Reviewed. mm11 01:44 Complete Blood Count Reviewed. mm11 01:44 Liver Profile Reviewed. mm11 01:44 Salicylate Level Reviewed. mm11 01:44 Thyroid Stimulating Hormone Reviewed. mm11 01:44 Drug Eval Toxicology ED Only Reviewed. mm11 01:44 Ethyl Alcohol (ethanol) Reviewed. mm11 01:44 HCG,Serum Qualitative Reviewed. mm11 01:45 Financial registration complete. hs2 02:01 [facility] Legal paperwork was scanned into [employer] and attached to record. jl 02:03 [facility] Legal paperwork was scanned into [employer] and attached to record. jl 10:20 T-Sheet-- Draft Copy was scanned into [employer] and attached to record. gb Signatures: Dispatcher [employer] EDMS Paulette Ernandez RN RN jan LaFontaine, Jon, PSA PSA Arleen Florence, Reg Reg gb Darian Ross, DO mm11 Wilda Cunningham, PSA PSA Maame Marie RN RN sls1 Adia Juarez,CREDIT CLERK CREDIT CLERK ka4 Ana Howard, Reg Reg hs2 The chart was reviewed and I authenticate all verbal orders and agree with the evaluation and treatment provided.Attachments: 01:08 [facility] Payment Agreement hs2 10:20 T-Sheet-- Draft Copy gb Chart Complete MTDD
[2016-03-14 06:32] VITALS: BP 109/64
[2016-03-14] MEDS: DROSPIRENONE PO SCH (08:30)
[2016-03-14] MEDS: ETHINYL ESTRADIOL PO SCH (08:30)
[2016-03-14 09:07] LABS: MEAN CORPUSCULAR HEMOGLOBIN 29.7 pg (27.0-33.0); MEAN CORPUSCULAR HGB CONC 34.8 g/dl (32.0-36.5); MEAN CORPUSCULAR VOLUME 85.3 fl (80.0-96.0); RED CELL DISTRIBUTION WIDTH 12.7 % (11.5-14.5)
[2016-03-14 09:43] LABS: THYROXINE (T4) 12.8 UG/DL (4.5-12.0)
--- NOTE | 2016-03-15 05:06 | MHDS ---
DATE OF ADMISSION: 03/12/2016 DATE OF DISCHARGE: 03/14/2016 LEGAL STATUS AT ADMISSION: 9.39 legal status. HISTORY OF PRESENT ILLNESS: 20-year-old female with history of panic episodes, anxiety, admitted to our unit on a 9.39 legal status. 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 According to the chart, patient was evaluated on 03/09/2016, in our emergency room (ER) because of a panic attack and she was discharged. She was followed at [facility]. Patient states that she had a "very bad panic episode" said that she was supposed to have some appointments at [facility], but "they changed the appointments and I was very concerned." She also stated that despite the fact that she is being chaptered out of the [employer] for failing her "tape" meaning measurements for her weight, said that "I decided not to fight it." Patient said that she was told that she did not have to got to training out of state, however, "they changed their mind all of a sudden and I was told to go." She said then became very anxious, panicky, and distressed. She had a panic episode. She contacted the human projectile, who advocated for her not to go to training feeling it could not be to her best interest. The patient later had a breakdown, crying so hard she developed a headache, shortness of breath and tremors that lasted for 20 minutes. When she was able to come to the emergency room, she came for an evaluation, she was very anxious, distressed and afraid. Given the presentation, it was decided to admit the patient for observation. During the interview, there was no evidence of psychotic symptoms. No auditory or visual hallucinations or delusions. No anand, hypomania or obsessive-compulsive disorder (OCD). LABORATORIES: At admission: CBC was unremarkable. CMP was within normal limits. TSH was 1.5 with a T4 of 12.8. HCG was negative. Urine drug screen (UDS) was negative. Blood alcohol level was also negative. HOSPITAL COURSE: Patient was admitted and after the first interview the patient was calmer. She was slightly anxious. She did not have any panic episode since admission. Discussing the treatment plan with the patient, she preferred to be treated with psychosocial interventions and not to be started with medication. Therefore, no psychotropic medications were started. She did well during her hospital admission. She had no complications. Patient was interacting well with other patients and staff. We did not see any psychotic symptoms. Patient denied any suicidal or homicidal ideation, Therefore, 03/14 it was decided to discharge the patient to be followed at [facility]. At the moment, the patient is in a stable condition. Again, with no psychotic symptoms, no auditory or visual hallucinations, delusions, suicidal or homicidal ideation. MEDICATIONS ON DISCHARGE: No medications have been prescribed during this hospital admission since patient prefers to treat her psychiatric problems with psychosocial interventions only. MENTAL STATUS EXAMINATION AT DISCHARGE: Patient is dressed in [facility]. Patient is calm and cooperative. Speech is clear, coherent with normal rate and is spontaneous. The patient has good eye contact. Mood is slightly anxious, but denies depression. Affect is appropriate and congruent with mood. Patient is oriented to time, place, person and situation. Maintains attention and concentration correctly. Instant recall, recent and remote memory are intact. Thought processes are coherent, logical and goal directed. Patient does not have auditory or visual hallucinations. Patient does not have paranoid, persecutory, somatic, grandiose, or zoroastrian delusions. Patient denies suicidal or homicidal ideation. Judgment and insight are fair. DISCHARGE DIAGNOSES: Drifting I: Adjustment disorder with depressed and anxious mood. Panic disorder without agoraphobia. Drifting II: Deferred. Drifting III: None acute. INSTRUCTIONS TO THE PATIENT: Patient is to followup recommendations and appointment as scheduled at discharge. The patient has scheduled appointment for [facility] as outpatient.
== END 2016-03-14 10:55 | disposition home or self-care (01) | DRG 882 ==
LOC: M ED 22:33 → M PSY 03-12 03:44
PROVIDERS: ADMIT Psychiatry & Neurology Psychiatry; ATTEND Psychiatry & Neurology Psychiatry
DX: F43.23 Adjustment disorder with mixed anxiety and depressed mood (principal); F41.0 Panic disorder [episodic paroxysmal anxiety]; G43.909 Migraine, unspecified, not intractable, without status migrainosus; F17.210 Nicotine dependence, cigarettes, uncomplicated